=== PATIENT | female | born 1960 | race Caucasian/White ===

== ENCOUNTER 2021-06-17 10:24 | Inpatient (IN) | payer MEDICARE, SELFPAY ==
[2021-06-17] VITALS (17 sets, daily range): BP systolic 105–121; BP diastolic 53–71; PULSE 80–101; RESP 16–24; TEMP 36.2–36.9; O2SAT 76–98; BMI 26.7; BMI 26.8
--- NOTE | 2021-06-17 10:29 | RAD_ITS ---
STUDY: X-RAY CHEST REASON FOR EXAM: Female, 60 years old. Dyspnea TECHNIQUE: Single AP portable upright view of the chest. The patient shoulders are rotated to the left. COMPARISON: None. FINDINGS: The lungs are incompletely expanded, and some crowding may lend to the appearance of prominent reticular interstitial densities in both lungs. There is some peribronchial thickening or fibronodular densities in the lateral right midlung and right base. This is also suggested in the medial left apex and in the lateral left base, the latter with question of early ill-defined alveolar density reflecting volume loss or infection. There is no demonstrated pleural abnormality. Normal size heart. Normal mediastinum and michael. Normal visualized pulmonary arteries. Normal visualized aortic arch and descending thoracic aorta. Normal visualized thoracic spine. Normal visualized ribs, clavicles, and shoulders. There is no demonstrated abnormality of the visualized soft tissue structures of the upper abdomen. RAD/Chest 1 View (Portable) IMPRESSION: X-ray examination of the chest degraded by suboptimal inspiratory effort with crowding. There is some prominence of the interstitium with scattered subsegmental sites of peripheral peribronchial thickening or fibronodular change, which may reflect chronic postinflammatory change. Question of early subsegmental volume loss or infection in the lateral left base. Electronically Signed: William Mancilla MD at 11:09 EDT , Service support ,
--- NOTE | 2021-06-17 10:30 | EKG12_ITS ---
Test Reason : SOB Blood Pressure : / mmHG Vent. Rate : 092 BPM Atrial Rate : 092 BPM P-R Int : 136 ms QRS Dur : 086 ms QT Int : 390 ms P-R-T Axes : 057 000 026 degrees QTc Int : 482 ms Normal sinus rhythm Nonspecific ST abnormality Abnormal ECG Confirmed by PURNIMA BROTHERS, DARCI ([id number]), editor dictionary SIMON JAIMES ([id number]) on 06/18/2021 1:39:31 PM Referred By: WANDA Confirmed By:DARCI FELTON MD
--- NOTE | 2021-06-17 10:31 | ED.VIS.DYS ---
HPI History of Present Illness Chief Complaint: Shortness of Breath Detail of Chief Complaint: Shortness of breath that started about a week ago. Informant: patient Narrative Narrative: Patient presents with shortness of breath x1 week. Patient states it came on gradually. She has had a mild cough. She traveled to [place] in April by vehicle. Patient denies any chest pain. She does have remote history of DVT but not currently anticoagulated. Patient is a smoker but has never been diagnosed with COPD or emphysema. No history of CHF. Patient describes minimal cough that is nonproductive. She denies Covid exposures. Patient has not been immunized against Covid. PFSH PFSH Home Medications Cetirizine Hcl [Zyrtec] 10 mg PO PRN PRN 10/08/13 [History Last Taken Unknown] Allergy/AdvReac Type Severity Reaction Status Date / Time Iodinated Contrast Media Allergy Rash Verified 06/17/21 12:18 [CONTRASTS] Surgical History (Updated 06/17/21 @ 10:31 by Dana Maria RN) Hx of appendectomy Hx of appendectomy Hx of cholecystectomy Hx of hysterectomy Social History Smoking Status: Current every day smoker tobacco type: cigarettes ROS ROS ED Constitutional Constitutional ED: Reports systems reviewed and no addt'l complaints, except as documented; Denies body ache(s), change in weight or chills Eyes Eyes: Denies acute decrease in peripheral vision, change in vision, double vision or loss of vision ENT ENT ED: Reports none; Denies ear pain, lip swelling, loss taste/smell, neck pain, otalgia or sore throat Cardiovascular Cardiovascular: Reports none; Denies abdominal pain, chest pain with activity, leg edema, lightheadedness, palpitations, rapid heart rate or syncope Respiratory/Chest Respiratory/Chest: Reports none, cough, dyspnea and dyspnea on exertion; Denies change in mental status, dry cough, hemoptysis, shortness of breath at rest, shortness of breath with exertion or sputum Gastrointestinal Gastrointestinal: Reports none; Denies abdominal pain, change in stool character, diarrhea, hematemesis, hematochezia, melena, rectal bleeding or vomiting Genitourinary Genitourinary ED: Reports none; Denies abdominal discomfort, anuria, dysuria, genital pain or polyuria Musculoskeletal Musculoskeletal: Reports none; Denies arthralgias, back pain, difficulty walking, extremity pain, muscle weakness or myalgias Integumentary Reports none; Denies abscess or rash Neurologic Neurologic: Reports none; Denies abnormal gait, confusion, focal weakness, frequent falls, headache(s), loss of vision, numbness, paresthesias, radicular pain, vertigo or weakness Psychiatric Psychiatric: Reports systems reviewed and no addt'l complaints, except as documented and none; Denies behavioral changes, confusion, difficulty concentrating, hallucinations, suicidal ideation, tactile hallucinations or visual hallucinations Endocrine Endocrinology: Denies none, cold intolerance, excessive sweating, fatigue or heat intolerance Hematologic/Lymphatic Hematologic/Lymphatic: Reports none; Denies anemia, easy bleeding or easy bruising Allergic/Immunologic Allergic/Immunologic ED: Denies as per HPI, none, lip swelling, mouth swelling, throat swelling, tongue swelling or hives EXAM Physical Exam Const Vital Signs: 06/17/21 10:25 06/17/21 10:28 06/17/21 10:32 Temperature 97.9 F 97.9 F Temperature Source Temporal Temporal Pulse Rate 101 H 97 Respiratory Rate 18 20 H Respiratory Effort Normal Respiratory Depth Normal Respiratory Pattern Normal Blood Pressure 121/64 H 121/64 H Blood Pressure Mean 83 83 Pulse Ox 91 93 Oxygen Delivery Method Nasal Cannula Nasal Cannula Room Air Oxygen Flow Rate (L/min) 6 6 06/17/21 10:45 06/17/21 11:29 06/17/21 12:04 Temperature 97.7 F L 97.1 F L Temperature Source Temporal Temporal Pulse Rate 85 99 89 Respiratory Rate 22 H 18 18 Respiratory Effort Respiratory Depth Respiratory Pattern Tachypnea Blood Pressure 117/67 105/63 Blood Pressure Mean 83 77 Pulse Ox 94 95 Oxygen Delivery Method Nasal Cannula Nasal Cannula Oxygen Flow Rate (L/min) 6 6 06/17/21 13:03 06/17/21 14:15 Temperature 97.9 F 98.0 F Temperature Source Temporal Temporal Pulse Rate 82 82 Respiratory Rate 16 21 H Respiratory Effort Respiratory Depth Respiratory Pattern Blood Pressure 107/53 L 117/63 Blood Pressure Mean 71 81 Pulse Ox 98 94 Oxygen Delivery Method Room Air Nasal Cannula Oxygen Flow Rate (L/min) 6 Positive well nourished and well developed General Appearance ED: well developed and NAD HEENT Reports TM's clear and moist mucous membranes normocephalic and atraumatic; Negative for trauma or tenderness Tympanic Membrane ED: Yes TM's clear Eyes PERRL and EOMs intact bilaterally General Eye ED: Negative for pale conjunctiva or scleral icterus Neck no lymphadenopathy, supple and no JVD General: Negative for tenderness Chest Wall inspection of chest normal and palpation of chest normal Chest: Negative for tenderness Resp clear to auscultation bilaterally Resp Narrative: Good aeration bilaterally. Minimal expiratory wheezes noted. Mild tachypnea with slight conversational dyspnea. No accessory muscle use or retractions noted. Effort and Inspection: Negative for respiratory distress or pain with movement Auscultation: wheezes; Negative for rhonchi or diminished lung sounds Cardio regular rate, regular rhythm, S1 normal heart sound, S2 normal heart sound and no murmurs Peripheral Pulses: pulses 2+ throughout GI normal to inspection, nondistended, normoactive bowel sounds, soft to palpation, non-tender, non-distended and no masses Back/Spine no CVA tenderness and no thoracic nor lumbar tenderness Extremity normal to inspection General Extremety ED: Negative for edema General Extremity: Negative for edema Neuro oriented x3, CN's II-XII intact bilaterally, no sensory deficits noted and gait normal Sensorium / Orientation: awake, alert, oriented to person, oriented to place and oriented to time Motor Exam: strength 5/5 throughout and strength abnormal Psych mental status grossly normal Skin no rashes or lesions noted and no wounds MDM MDM MDM Narrative Medical decision making narrative: Case discussed with hospitalist to evaluate patient for admission. Hospitalist asked that I discussed case with ICU physician on-call Dr. Lowe. Patient will require admission for respiratory failure related to pulmonary emboli. I suspect although patient is negative for the rapid Covid test that her PCR will likely come back positive given that findings on CT would be consistent with Covid pneumonia. Lab Data Attestation: I reviewed the patient's lab results. Labs: Laboratory Results - last 24 hr 06/17/21 06/17/21 06/17/21 10:30 10:30 10:30 WBC 10.0 RBC 4.87 Hgb 14.8 Hct 44.5 MCV 91.4 MCH 30.4 MCHC 33.3 RDW Std Deviation 44.7 H RDW Coeff of Gary 13.5 Plt Count 315 MPV 10.0 Immature Gran % (Auto) 4.300 H Neut % (Auto) 71.3 H Lymph % (Auto) 18.1 L [place] % (Auto) 5.0 Eos % (Auto) 0.8 Baso % (Auto) 0.5 Absolute Neuts (auto) 7.1 Absolute Lymphs (auto) 1.81 Nucleated RBC % 0.6 Differential Comment SCANNED Reactive Lymphocytes 1+ D-Dimer Quant (PE/DVT) > 20.00 H* Sodium 140 Potassium 2.8 L Chloride 105 Carbon Dioxide 23.0 Anion Gap 12 BUN 27 H Creatinine 1.15 H Estim Creat Clear Calc 47.48 Est GFR (MDRD) Af Amer 61 Est GFR (MDRD) Non-Af 51 L BUN/Creatinine Ratio 23.5 H Glucose 151 H Lactic Acid Calcium 9.4 Troponin I High Sens 19 B-Natriuretic Peptide 06/17/21 06/17/21 10:30 10:30 WBC RBC Hgb Hct MCV MCH MCHC RDW Std Deviation RDW Coeff of Gary Plt Count MPV Immature Gran % (Auto) Neut % (Auto) Lymph % (Auto) [place] % (Auto) Eos % (Auto) Baso % (Auto) Absolute Neuts (auto) Absolute Lymphs (auto) Nucleated RBC % Differential Comment Reactive Lymphocytes D-Dimer Quant (PE/DVT) Sodium Potassium Chloride Carbon Dioxide Anion Gap BUN Creatinine Estim Creat Clear Calc Est GFR (MDRD) Af Amer Est GFR (MDRD) Non-Af BUN/Creatinine Ratio Glucose Lactic Acid 3.9 H* Calcium Troponin I High Sens B-Natriuretic Peptide 32.1 Radiography Diagnostic Testing: Radiology Impression Chest X-Ray 06/17/21 10:29 IMPRESSION: X-ray examination of the chest degraded by suboptimal inspiratory effort with crowding. There is some prominence of the interstitium with scattered subsegmental sites of peripheral peribronchial thickening or fibronodular change, which may reflect chronic postinflammatory change. Question of early subsegmental volume loss or infection in the lateral left base. Electronically Signed: William Mancilla MD at 11:09 EDT , Service support , Chest CTA 06/17/21 11:43 IMPRESSION: 1. Moderate clot burden of acute pulmonary embolism, occlusive index 40-45%. 2. Acute right heart strain. 3. Acute, presumedly Covid pneumonia. 4. Severe emphysema. Electronically Signed: Deann Tejada MD at 14:37 EDT Tel , Service support , EKG Initial EKG: Attestation: I personally reviewed and interpreted this EKG as follows: Comments: Sinus rhythm with a ventricular rate of [address] changes. Prior EKG tracings: available for review Discharge Plan Triage Chief Complaint: Shortness of Breath ED Provider: Ifeoma Rich Dx/Rx/DC Orders Clinical Impression: Pulmonary emboli, Respiratory failure, Hypoxemia Prescriptions: No Action Cetirizine Hcl [Zyrtec] 10 MG tablet 10 mg PO PRN PRN (Reason: Allergies) RF: 0 Primary Care Provider: Abhishek Smart Referrals: Abhishek Smart MD [Primary Care Provider] - Disposition Disposition: Acute Care [facility]
[2021-06-17] MEDS: 0.9% Normal Saline 1,000 ML 150 ML IV (10:39)
[2021-06-17 10:46] LABS: Absolute Lymphocyte Count 1.81 X10^3/uL (0.83-4.51); Absolute Neutrophil Count 7.1 X10^3/uL (2.0-7.7); Basophil# 0.05 X10^3/uL; Basophil% 0.5 % (0-1); Eosinophil# 0.08 X10^3/uL; Eosinophils% 0.8 % (0-5); Hematocrit 44.5 % (37-47); Hemoglobin 14.8 g/dL (12.0-15.0); Lymphocyte # 1.81 X10^3/ul (0.83-4.51); Lymphocyte % 18.1 % (19-41); Mean Corp Hgb Conc 33.3 g/dL (32-36); Mean Corpuscular Hgb 30.4 pg (27.0-32.0); Mean Corpuscular Volume 91.4 fL (81-99); NRBC Flagged by Analyzer 0.6 % (0-5); Neutrophil # 7.14 X10^3/uL (2.7-7.7); Neutrophil % 71.3 % (47-70); POSITIVE MORPHOLOGY YES; Platelet Count 315 K/mm3 (150-450); RBC Distribution Width CV 13.5 % (11.6-14.6); RBC Distribution Width SD 44.7 fl (35.1-43.9); Red Blood Count 4.87 M/mm3 (4.2-5.4)
[2021-06-17 10:47] LABS: Differential Indicated SCAN CRITERIA MET
[2021-06-17 11:06] LABS: Anion Gap 12 (5-15); BUN 27 mg/dL (7-18); BUN/Creat Ratio 23.5 RATIO (10-20); Calcium,Total 9.4 mg/dL (8.5-10.1); Chloride 105 mmol/L (98-107); Creatinine, Serum 1.15 mg/dL (0.55-1.02); EST Glomerular Filtration Rate 51 mL/min (>60); Est Glom Filt Rate - Afr Amer 61 mL/min (>60); Estimated Creatinine Clearance 47.48 ml/min; Glucose 151 mg/dL (74-106); Potassium 2.8 mmol/L (3.5-5.1); Sodium Level 140 mmol/L (136-145); Troponin-I HS 19 pg/mL (3.0-54.0)
[2021-06-17 11:15] LABS: BNP,B-Type NATRIURETIC PEPTIDE 32.1 pg/mL (0-100)
[2021-06-17 11:19] LABS: Lactic Acid 3.9 mmol/L (0.4-1.9)
[2021-06-17 11:23] LABS: Differential Comment SCANNED; Reactive Lymphocyte 1+
[2021-06-17] MEDS: Potassium Chloride Oral Tablet 20 MEQ 40 MEQ PO (11:28)
[2021-06-17 11:43] LABS: D-Dimer Quantitative (DVT/PE) > 20.00 FEU/ug/m (0.27-0.49)
--- NOTE | 2021-06-17 11:43 | CT_ITS ---
ACR Level 3 findings have been noted. An addendum which confirms receipt of the report will follow. STUDY: CTA CHEST REASON FOR EXAM: Female, 60 years old. Dyspnea RADIATION DOSAGE (If Supplied By Facility): CTDIvol = ( 11.04 ) mGy, DLP = ( 409.2 ) mGycm TECHNIQUE: The examination was performed with the intravenous administration of IV 100mL Isovue-370. Post-processing of the angiographic images was performed, with multiplanar reformation and 3D reconstruction. Individualized dose optimization techniques were used for this CT. COMPARISON: None. FINDINGS: There is extensive multifocal pulmonary embolism with moderate burden of clot both with occlusive and nonocclusive components. Occlusive index is estimated at 40-45%, moderate. There is mild right ventricular dilation and flattening of the intraventricular septum. There is extensive pneumonia and severe emphysema. There is no pulmonary edema or pleural effusions. Aorta is normal. CT/CTA Chest W/WO Contrast IMPRESSION: 1. Moderate clot burden of acute pulmonary embolism, occlusive index 40-45%. 2. Acute right heart strain. 3. Acute, presumedly Covid pneumonia. 4. Severe emphysema. Electronically Signed: Deann Tejada MD at 14:37 EDT Tel , Service support ,
--- NOTE | 2021-06-17 11:46 | ED.RN ---
d-dimer greater then 20. dr berg
[2021-06-17] MEDS: DiphenhydrAMINE 50 MG/ML Syringe IV (12:19)
[2021-06-17] MEDS: MethylPREDNISolone 125 MG/2 ML Vial IV (12:19)
[2021-06-17 14:41] LABS: Reflex Lactate? Y
[2021-06-17 15:35] LABS: Probe Check PASS; Specimen Processing Control PASS
--- NOTE | 2021-06-17 15:36 | PCM.HP.STD ---
HPI - General HPI Narrative AUGUSTUS GAN, is a 60 F with history of recurrent DVT, previous 2 times came to ER with shortness of breath and 76% on room air. Patient has shortness of breath for about 10 days, progressively worsening. She has mild chronic cough but thinks her baseline, smoker's cough. Denies any recent long travel or provoked cause. Last time when she has DVT she took anticoagulant for 1 and half years. She denies chest pain or pressure. Her blood pressure was slightly low when she came up but got better with IV fluid. CT angiogram was done and individually reviewed which shows moderate clot burden of acute PE, acute right ventricular dilatation with flattening of IV septum. Diffuse emphysematous changes both bullae and groundglass opacity in peripheral and basal areas. ER physician discussed with the collections associate and he advised against putting on BiPAP as she is high risk of pneumothorax with emphysematous lung and bullae. Twelve-lead EKG shows normal sinus rhythm [address]-T changes. QTc 422 ms. proBNP and troponin is negative. Patient does started on therapeutic Lovenox in the ED and IV fluid. Rapid Covid antigen is negative and RT-PCR is positive PFSH Home Medications Cetirizine Hcl [Zyrtec] 10 mg PO PRN PRN 10/08/13 [History Last Taken Unknown] Allergy/AdvReac Type Severity Reaction Status Date / Time Iodinated Contrast Media Allergy Rash Verified 06/17/21 12:18 [CONTRASTS] Surgical History (Updated 06/17/21 @ 10:31 by Dana Maria RN) Hx of appendectomy Hx of appendectomy Hx of cholecystectomy Hx of hysterectomy Social History Smoking Status: Current every day smoker tobacco type: cigarettes ROS ROS Narrative Constitutional: Reports fatigue and weakness. No fever HEENT: Reports systems reviewed and no addt'l complaints, except as documented Respiratory/Chest: Mild chronic cough. Dyspnea at rest. Chronic smoker 1-1.5 pack since teenage, quit 3 weeks ago Gastrointestinal: Denies coffee ground emesis, hematemesis or vomiting Genitourinary: Denies burning urination or new urinary tract symptoms Musculoskeletal: Denies joint pain and limited range of motion or leg swelling Neurologic: Denies seizure-like activity skin: No ulcer. No rash Endocrinology: Reports systems reviewed and no addt'l complaints, except as documented Hematologic/Lymphatic: Reports systems reviewed and no addt'l complaints, except as documented Rest 12 ROS are negative except as mentioned in HPI Vital Signs Vital Signs Vital Signs: 06/17/21 10:25 06/17/21 10:28 06/17/21 10:32 Temperature 97.9 F 97.9 F Temperature Source Temporal Temporal Pulse Rate 101 H 97 Respiratory Rate 18 20 H Respiratory Effort Normal Respiratory Depth Normal Respiratory Pattern Normal Blood Pressure 121/64 H 121/64 H Blood Pressure Mean 83 83 Pulse Ox 91 93 Oxygen Delivery Method Nasal Cannula Nasal Cannula Room Air Oxygen Flow Rate (L/min) 6 6 06/17/21 10:45 06/17/21 11:29 06/17/21 12:04 Temperature 97.7 F L 97.1 F L Temperature Source Temporal Temporal Pulse Rate 85 99 89 Respiratory Rate 22 H 18 18 Respiratory Effort Respiratory Depth Respiratory Pattern Tachypnea Blood Pressure 117/67 105/63 Blood Pressure Mean 83 77 Pulse Ox 94 95 Oxygen Delivery Method Nasal Cannula Nasal Cannula Oxygen Flow Rate (L/min) 6 6 06/17/21 13:03 06/17/21 14:15 Temperature 97.9 F 98.0 F Temperature Source Temporal Temporal Pulse Rate 82 82 Respiratory Rate 16 21 H Respiratory Effort Respiratory Depth Respiratory Pattern Blood Pressure 107/53 L 117/63 Blood Pressure Mean 71 81 Pulse Ox 98 94 Oxygen Delivery Method Room Air Nasal Cannula Oxygen Flow Rate (L/min) 6 Weight Weight: 165 lb 12.602 oz Body Mass Index (BMI) 26.7 Physical Exam Narrative General: Alert, Oriented x3, Cooperative HEENT: Atraumatic, PERRLA, EOMI, Normocephalic Oral: No Gingival or Mucosal Lesions/ Ulcerations Neck: Supple, No JVD, Negative Carotid Bruits Lungs: Air entry severely diminished in bilateral lungs. No crepitation or rhonchi. Dyspnea at rest. Cardiovascular: Regular rate, Regular Rhythm, Normal S1, Normal S2, No murmurs Abdomen: Bowel Sounds Present, Soft, Non Tender, Non-Distended : No renal angle tenderness. No suprapubic tenderness. Extremities: No edema, Capillary Refill Less than 3 Seconds Skin: No rashes, No breakdown Musculoskeletal: No Tenderness to Palpation of Joints or Extremities Neurological: Cranial nerves II-XII grossly intact, DTR 2+/4 and Symmetrical, Neuro grossly intact Psych/Mental Status: Normal Affect, Appropriate. Results Lab / Micro Data Result Diagrams: 06/17/21 10:30 06/17/21 10:30 Labs: Laboratory Results - last 24 hr 06/17/21 10:30: WBC 10.0, RBC 4.87, Hgb 14.8, Hct 44.5, MCV 91.4, MCH 30.4, MCHC 33.3, RDW Std Deviation 44.7 H, RDW Coeff of Gary 13.5, Plt Count 315, MPV 10.0, Immature Gran % (Auto) 4.300 H, Neut % (Auto) 71.3 H, Lymph % (Auto) 18.1 L, [place] % (Auto) 5.0, Eos % (Auto) 0.8, Baso % (Auto) 0.5, Absolute Neuts (auto) 7.1, Absolute Lymphs (auto) 1.81, Nucleated RBC % 0.6, Differential Comment SCANNED, Reactive Lymphocytes 1+ 06/17/21 10:30: D-Dimer Quant (PE/DVT) > 20.00 H* 06/17/21 10:30: Sodium 140, Potassium 2.8 L, Chloride 105, Carbon Dioxide 23.0, Anion Gap 12, BUN 27 H, Creatinine 1.15 H, Estim Creat Clear Calc 47.48, Est GFR (MDRD) Af Amer 61, Est GFR (MDRD) Non-Af 51 L, BUN/Creatinine Ratio 23.5 H, Glucose 151 H, Calcium 9.4, Troponin I High Sens 19 06/17/21 10:30: B-Natriuretic Peptide 32.1 06/17/21 10:30: Lactic Acid 3.9 H* 06/17/21 14:27: COVID-19 (HERMAN) Positive Micro: Microbiology 06/17/21 10:35 Nasal Secretion SARS-CoV-2 Antigen (Rapid) - Final Radiology Impression Chest X-Ray 06/17/21 10:29 IMPRESSION: X-ray examination of the chest degraded by suboptimal inspiratory effort with crowding. There is some prominence of the interstitium with scattered subsegmental sites of peripheral peribronchial thickening or fibronodular change, which may reflect chronic postinflammatory change. Question of early subsegmental volume loss or infection in the lateral left base. Electronically Signed: William Mancilla MD at 11:09 EDT , Service support , Chest CTA 06/17/21 11:43 IMPRESSION: 1. Moderate clot burden of acute pulmonary embolism, occlusive index 40-45%. 2. Acute right heart strain. 3. Acute, presumedly Covid pneumonia. 4. Severe emphysema. Electronically Signed: Deann Tejada MD at 14:37 EDT Tel , Service support , Assessment & Plan Assessment/Plan (1) Pulmonary emboli: QUALIFIERS: Pulmonary embolism type: multiple subsegmental (without acute cor pulmonale) Qualified Code(s): I26.94 - Multiple subsegmental pulmonary emboli without acute cor pulmonale PLAN: This 60-year-old female admitted for acute pulmonary embolism and COVID-19 pneumonia 1. Acute toxic respiratory failure secondary to moderate bilateral acute pulmonary embolism, bilateral COVID-19 pneumonia: Patient is being admitted on PCU. COVID-19 enhanced droplet precaution. Started on Lovenox one 1 mg/kg body weight every 12. 2D echo tomorrow a.m. Although CT angiogram shows RV dilatation, troponin high-sensitivity and BNP are negative. Patient discussed with the collections associate and agrees with PCU admission. Sole Blacker consulted. 2. Bilateral COVID-19 pneumonia: Patient has lactic acidosis. No fever, tachycardia but hypoxia. IV fluid Ringer lactate 1 L bolus and then 100 mill per hour. Start on Decadron 6 mg daily and remdesivir. consult ID. As patient has severe emphysematous lung, pneumonia and RV dilatation and high risk for fluid overload/pulmonary edema Rest as mentioned above. 3. Severe emphysema as per CT scan: Patient did not had prior PFT evaluation. DuoNeb every 4 hourly. Incentive spirometry, Pep and Mucinex D. Bronchopulmonary hygiene. 4. VTE prophylaxis: Already on therapeutic Lovenox. Discontinue if platelet count drops less than 50,000 or hemoglobin less than 8 g% Living will/advanced directive/end of life care: Patient does has living will or advanced directive. The mother is next to kin. After discussion of benefits/risks procedures involved with full code, DNR CC arrest and DNR CC, the patient opted for full code. Patient does want artificial life support including intubation, tube feed, ventilator and/chest compression, central venous catheter, vasopressor and DC shock if needed Total time spent in [id number] encounter in discussion of advanced directive 16 minutes. Clinical Impression(s) from Imaging Studies Chest X-Ray 06/17/21 10:29 IMPRESSION: X-ray examination of the chest degraded by suboptimal inspiratory effort with crowding. There is some prominence of the interstitium with scattered subsegmental sites of peripheral peribronchial thickening or fibronodular change, which may reflect chronic postinflammatory change. Question of early subsegmental volume loss or infection in the lateral left base. Chest CTA 06/17/21 11:43 IMPRESSION: 1. Moderate clot burden of acute pulmonary embolism, occlusive index 40-45%. 2. Acute right heart strain. 3. Acute, presumedly Covid pneumonia. 4. Severe emphysema. Charges/Coding Visit Charges Inpatient E&M: 79541 Init Hosp L3 Procedures Hospitalists Procedures: [id number] Advncd Care Plan 30 Min
[2021-06-17 15:53] LABS: Lactic Acid 1.4 mmol/L (0.4-1.9)
[2021-06-17] MEDS: Enoxaparin 80 MG/0.8 ML Syringe SC ×2 (16:09→21:28)
[2021-06-17 17:43] LABS: Fibrinogen 364 mg/dl (203-444)
[2021-06-17 17:52] LABS: International Normalized Ratio 1.4; Prothrombin Time (Protime)PT. 16.5 SECONDS (11.7-14.9)
--- NOTE | 2021-06-17 17:52 | PCS.PANDOC ---
PANDEMIC DOCUMENTATION INITIATED: Date: 05/21/2021 Time: 190
[2021-06-17] MEDS: Lactated Ringers 1,000 ML 999 ML IV (18:30)
[2021-06-17] MEDS: 0.9% Saline Lock 10 ML Syringe IV (18:46)
[2021-06-17 19:13] LABS: CPK Total, Creatine Kinase 49 U/L (26-192); LDH 653 U/L (84-246); Magnesium 1.8 mg/dL (1.6-2.6)
[2021-06-17] MEDS: Ipratropium/Albuterol Sulfate 3 ML AMPUL.NEB INHALATION ×2 (19:47→22:49)
[2021-06-17] MEDS: guaiFENesin/D-Methorphan TAB.SR.12H 1 TABLET PO (19:54)
[2021-06-17] MEDS: Lactated Ringers 1,000 ML 100 ML IV (19:54)
--- NOTE | 2021-06-17 23:00 | CPS ---
pt placed on high flow nasal canula
[2021-06-18] VITALS (14 sets, daily range): BP systolic 111–127; BP diastolic 56–60; PULSE 69–90; RESP 16–24; TEMP 36.6–36.9; O2SAT 92–97
[2021-06-18] MEDS: Calcium Carbonate 500 MG Tablet 1000 MG PO ×2 (04:23→18:27)
--- NOTE | 2021-06-18 05:55 | ECHOD_ITS ---
Procedure This was a 2D Doppler, Color Flow transthoracic echocardiogram. The study was technically limited. Exam performed portable in patient room. The exam was abbreviated due to the COVID 19 protocol. Left Ventricle Normal LV size. Left ventricular systolic function is normal. The estimated ejection fraction is 60 %. No regional wall motion abnormalities noted. Right Ventricle Normal RV size. Normal systolic function. Atria Normal left atrium. Normal right atrium. Mitral Valve Normal mitral valve. Tricuspid Valve Normal tricuspid valve. Mild (1+) tricuspid valve insufficiency. Pulmonary artery systolic pressure is 34 mmHg. Great Vessels Normal aortic root. Pericardium/Pleural No pericardial effusion. MMode/2D Measurements & Calculations LVIDd: 4.1 cm IVSd: 0.70 cm LAV(MOD-bp): 57.4 ml LVIDs: 2.8 cm LVPWd: 0.78 cm LAV(MOD-bp) Indexed: 31.1 ml/m2 RVDd: 4.0 cm FS: 31.0 % LAV(MOD-sp2): 65.8 ml LAV(MOD-sp4): 46.3 ml LA A4 area: 18.5 cm2 RA A4 area: 15.8 cm2 Doppler Measurements & Calculations TR max jun: 278.8 cm/sec TR max P.2 mmHg ECHO/Echo Complete Interpretation Summary Normal LV size. Left ventricular systolic function is normal. The estimated ejection fraction is 60 %. Mild (1+) tricuspid valve insufficiency. Pulmonary artery systolic pressure is 34 mmHg. Ordering Physician: Willem Olivarez Referring Physician: RV FAILURE Performed By: Zahida Lehman, RDCS, RVT
[2021-06-18] MEDS: Ipratropium/Albuterol Sulfate 3 ML AMPUL.NEB INHALATION ×5 (07:21→23:06)
[2021-06-18 08:01] LABS: Absolute Lymphocyte Count 1.61 X10^3/uL (0.83-4.51); Absolute Neutrophil Count 10.6 X10^3/uL (2.0-7.7); Basophil# 0.02 X10^3/uL; Basophil% 0.1 % (0-1); Hematocrit 38.6 % (37-47); Hemoglobin 12.8 g/dL (12.0-15.0); Lymphocyte # 1.61 X10^3/ul (0.83-4.51); Lymphocyte % 11.9 % (19-41); Mean Corp Hgb Conc 33.2 g/dL (32-36); Mean Corpuscular Hgb 30.4 pg (27.0-32.0); Mean Corpuscular Volume 91.7 fL (81-99); Mean Platelet Vol. 10.2 fl (6.2-12.0); Monocyte# 0.65 X10^3/uL; Monocyte% 4.8 % (0-10); NRBC Flagged by Analyzer 0.1 % (0-5); Neutrophil # 10.63 X10^3/uL (2.7-7.7); Neutrophil % 78.8 % (47-70); Platelet Count 277 K/mm3 (150-450); RBC Distribution Width CV 13.4 % (11.6-14.6); RBC Distribution Width SD 44.7 fl (35.1-43.9); Red Blood Count 4.21 M/mm3 (4.2-5.4); White Blood Count 13.5 K/mm3 (4.4-11.0)
[2021-06-18 08:46] LABS: ALB/GLOB Ratio 0.6 RATIO (0.9-2.4); AST(SGOT) 43 U/L (15-37); Alanine Aminotransfer ALT/SGPT 90 U/L (13-56); Albumin, Serum 2.3 g/dL (3.2-5.0); Alkaline Phosphatase 178 U/L (45-117); Anion Gap 10 (5-15); BUN 22 mg/dL (7-18); BUN/Creat Ratio 35.7 RATIO (10-20); Calcium,Total 8.8 mg/dL (8.5-10.1); Chloride 105 mmol/L (98-107); Creatinine, Serum 0.62 mg/dL (0.55-1.02); EST Glomerular Filtration Rate 104 mL/min (>60); Est Glom Filt Rate - Afr Amer 126 mL/min (>60); Estimated Creatinine Clearance 88.07 ml/min; Glucose 137 mg/dL (74-106); Potassium 3.1 mmol/L (3.5-5.1); Protein, Total 6.3 g/dL (6.4-8.2); Sodium Level 139 mmol/L (136-145); Thyroid Stim Hormone (TSH) 0.41 uIU/mL (0.358-3.74)
[2021-06-18] MEDS: Enoxaparin 80 MG/0.8 ML Syringe SC ×2 (11:11→22:05)
[2021-06-18] MEDS: guaiFENesin/D-Methorphan TAB.SR.12H 1 TABLET PO ×2 (11:11→22:06)
--- NOTE | 2021-06-18 12:40 | CASEMGMT ---
MARCI AGUILERA Face to Face with patient for initial transition planning/care coordination assessment. RN CM introduced self and role at [facility]. Patient lying in bed, alert and oriented. Patient willing to participate in assessment and is able to answer all questions appropriately. Care providers, pharmacy, and demographics verified. Patient wishes to discharge home, denies need for home health at this time. Patient states she has no further needs or concerns at this time. CM to follow for discharge planning needs that may arise. PCP: [facility] Specialists: none Preferred Pharmacy: [facility] retail at discharge. Insurance: none Prescription Benefit: none Living Will/HPOA: none LNOK: sons Living Arrangements: Patient lives in [place] and here in [place] visiting sons. Patient states she is staying with son in his 2nd floor apartment. Patient states she could isolate at other son's first floor apartment. Transportation: son DME/HHC: Patient states she is getting a nebulizer from son that he has extra. No preferences for DME and agreeable to [employer]. Will monitor for need for home oxgyen. Disposition Plan: Patient to discharge home with family support and follow-up plans in place. Sosa RONQUILLO, RN, CM
--- NOTE | 2021-06-18 14:09 | CON.PCM.CC_ITS ---
Assessment & Plan Assessment/Plan (1) Respiratory failure: (2) Pulmonary emboli: QUALIFIERS: Pulmonary embolism type: multiple subsegmental (without acute cor pulmonale) Qualified Code(s): I26.94 - Multiple subsegmental pulmonary emboli without acute cor pulmonale (3) Hypoxemia: PLAN: RECOMMENDATIONS: 1. Continue remdesivir and Decadron to complete recommended courses 2. Volume restrict as tolerated 3. Encourage out of bed and incentive spirometer as tolerated 4. Wean supplemental oxygen as tolerated 5. Add as needed to scheduled bronchodilator therapy 6. Full anticoagulation IMPRESSIONS: 1. Acute hypoxic respiratory failure secondary to COVID-19 pneumonia and bilateral PEs Patient appears to have significant RV dilation on CT scan. Echocardiogram has been ordered. Patient should be on full anticoagulation. Decadron will be added to Remdesivir therapy. Wean supplemental oxygen as tolerated. Patient would benefit from incentive spirometer and out of bed as tolerated. Patient does not formally carry a diagnosis of COPD, but does have significant emphysematous changes noted. Patient will have as needed albuterol added to DuoNeb therapy. Patient appears to have poor insight into her overall condition. Patient is not immunized, so clinical course could get worse moving forward. If patient does not significantly deteriorate, could transition to a [address] of subcu Lovenox. 2. Poor insight/advanced age/active tobacco abuse Complicates care, management, recovery and prognosis. Patient is a full code. Nicotine replacement was offered. Patient encouraged to quit smoking. Next of kin is reportedly her mother. HPI Consult Data Date of Consult: 06/18/21 HPI Narrative HPI Narrative: AUGUSTUS GAN is a 60 F, with no reported past medical history, who presents to [facility] on 06/17/2021 secondary to progressive shortness of breath over the previous week. Patient had reported a mild cough initially that progressed to shortness of breath. Patient stated that 3 days prior to presentation she had tried to go up some steps and had significant issues. Patient presented to the ER secondary to continued progression to the point that she was short of breath at rest. Patient did report that she recently traveled to [place] in April with a vehicle. Patient does have a remote history of DVT, but is not currently anticoagulated. Patient is a smoker, but is never been seen by a transportation mechanic to be diagnosed with COPD or emphysema. Patient is not aware of any congestive heart failure. On presentation to the ER, patient was afebrile, but tachycardic at 101 bpm. Patient was requiring 6 L nasal cannula to maintain saturations. Patient has never required supplemental oxygen previously. Laboratory work-up was relatively unremarkable except for an elevated D-dimer, low potassium at 2.8 and a creatinine of 1.15. Lactate was elevated at 3.9 and BNP was 32.1. Chest x- ray had shown some scattered peribronchial thickening. Given elevated D-dimer, CTA was obtained showing a moderate clot burden with acute right heart strain, severe emphysema and bilateral groundglass opacities. Initial Covid testing was negative, but subsequent testing had come back positive. The patient was ad mitted to the floor for further evaluation. Patient reports subjective improvement in overall condition since admission. Patient is requiring 8 L nasal cannula to maintain saturations. Patient is u nclear on the exact onset of symptomatology. Patient does report a history of smoking in the past, but is never been seen by transportation mechanic. Patient does have a cough productive of clear to white sputum at baseline. Patient does not use any inhalers. Patient has had some issues with environmental allergies in the past and has taken Zyrtec [id number]. Patient is very coy about her COVID-19. Patient states that is what they tell me I have. Patient is also aware that she has pulmonary emboli. Patient did not get vaccinated against COVID-19, but would not give any reasoning. Patient does not report using ivermectin or Plaquenil as prophylaxis. Patient has no history of liver dysfunction in the past. Review of systems otherwise negative from a constitutional, HEENT, respiratory, cardiovascular, GI, genitourinary, musculoskeletal, skin, neurologic, psychiatric and hematologic system unless stated above. PFSH Allergy/AdvReac Type Severity Reaction Status Date / Time Iodinated Contrast Media Allergy Rash Verified 06/17/21 12:18 [CONTRASTS] Surgical History (Updated 06/17/21 @ 10:31 by Dana Maria RN) Hx of appendectomy Hx of appendectomy Hx of cholecystectomy Hx of hysterectomy Social History Smoking Status: Current every day smoker tobacco type: cigarettes ROS ROS Narrative See HPI Physical Exam Const alert, oriented x3 and no apparent distress Constitutional Narrative: On nasal cannula General Appearance: cooperative and well developed HEENT normocephalic, head/scalp atraumatic and moist oral mucous membranes Eyes PERRL and EOMs intact bilaterally Neck full ROM and no lymphadenopathy Chest inspection of chest normal Resp normal respiratory effort and no use of accessory muscles Effort and Inspection: able to speak in complete sentences Auscultation: wheezes and diminished lung sounds; Negative for rales or rhonchi Percussion: Negative for dullness Cardio regular rate, regular rhythm, S1 normal heart sound, S2 normal heart sound, no murmurs, no rub and no gallops GI normal to inspection, nondistended, normoactive bowel sounds no CVA tenderness Extremity no clubbing, cyanosis or edema Skin no rashes or lesions noted Neuro oriented x3, CN's II-XII intact bilaterally, moves all extremities and no focal motor deficits Psych cooperative and affect normal Lab / Micro Data Result Diagrams: 06/18/21 06:35 06/18/21 06:35 Labs: Laboratory Results - last 24 hr 06/17/21 10:30: Magnesium 1.8, Lactate Dehydrogenase 653 H, C-React Prot Ext Range 90.00 H 06/17/21 10:30: PT 16.5 H, INR 1.4, Fibrinogen 364 06/17/21 10:30: Total Creatine Kinase 49 06/17/21 10:30: Procalcitonin 0.20 H 06/17/21 14:27: COVID-19 (HERMAN) Positive 06/17/21 15:05: Lactic Acid 1.4 06/18/21 06:35: WBC 13.5 H, RBC 4.21, Hgb 12.8, Hct 38.6, MCV 91.7, MCH 30.4, MCHC 33.2, RDW Std Deviation 44.7 H, RDW Coeff of [place] 13.4, Plt Count 277, MPV 10.2, Immature Gran % (Auto) 4.400 H, Neut % (Auto) 78.8 H, Lymph % (Auto) 11.9 L, [place] % (Auto) 4.8, Eos % (Auto) 0.0, Baso % (Auto) 0.1, Absolute Neuts (auto) 10.6 H, Absolute Lymphs (auto) 1.61, Nucleated RBC % 0.1 06/18/21 06:35: Sodium 139, Potassium 3.1 L, Chloride 105, Carbon Dioxide 24.0, Anion Gap 10, BUN 22 H, Creatinine 0.62, Estim Creat Clear Calc 88.07, Est GFR (MDRD) Af Amer 126, Est GFR (MDRD) Non-Af 104, BUN/Creatinine Ratio 35.7 H, Glucose 137 H, Calcium 8.8, Total Bilirubin 0.60, AST 43 H, ALT 90 H, Alkaline Phosphatase 178 H, Total Protein 6.3 L, Albumin 2.3 L, Globulin 4.0, Albumin/Globulin Ratio 0.6 L, TSH 0.41 Micro: Microbiology 06/17/21 10:35 Nasal Secretion SARS-CoV-2 Antigen (Rapid) - Final Radiology Impression Chest CTA 06/17/21 11:43 IMPRESSION: 1. Moderate clot burden of acute pulmonary embolism, occlusive index 40-45%. 2. Acute right heart strain. 3. Acute, presumedly Covid pneumonia. 4. Severe emphysema. Electronically Signed: Deann Tejada MD at 14:37 EDT Tel , Service support , ADDENDUM: 06/17/21 1540 IMPRESSION: 1. Moderate clot burden of acute pulmonary embolism, occlusive index 40-45%. 2. Acute right heart strain. 3. Acute, presumedly Covid pneumonia. 4. Severe emphysema. N.B. : Dr. Ifeoma Rich MD, confirmed on 06/17/2021 15:33:01 (ET) that the healthcare facility has received the radiology report. Electronically Signed: Deann Tejada MD at 14:37 EDT Tel , Service support , Charges/Coding Visit Charges Inpatient E&M: 01621 Init Hosp L3
--- NOTE | 2021-06-18 15:16 | PCM.CONS.GEN ---
Assessment & Plan Assessment/Plan (1) Respiratory failure: (2) Hypoxemia: (3) Pulmonary emboli: QUALIFIERS: Pulmonary embolism type: multiple subsegmental (without acute cor pulmonale) Qualified Code(s): I26.94 - Multiple subsegmental pulmonary emboli without acute cor pulmonale (4) COVID-19: PLAN: Sx started about 10 days ago. Unvaccinated. On dex, remdesivir, therapeutic anticoag. Recommended 20 days isolation, recommend sons get tested and vaccinated. She also needs vaccine in 1-2 months. Will follow, thank you HPI Consult Data Date of Consult: 06/18/21 HPI Narrative HPI Narrative: AUGUSTUS GAN, is a 60 F who presented 06/17 with about 9-10 days of fever, chills, cough, dyspnea. No change in taste/smell, no n/v/d. Visiting from [place]. Unvaccinated for covid. H/o DVT. Came to ED, covid (+), CT showed extensive PEs. Feeling better. Full ROS performed and neg except as noted above. PFSH Allergy/AdvReac Type Severity Reaction Status Date / Time Iodinated Contrast Media Allergy Rash Verified 06/17/21 12:18 [CONTRASTS] Surgical History (Updated 06/17/21 @ 10:31 by Dana Maria RN) Hx of appendectomy Hx of appendectomy Hx of cholecystectomy Hx of hysterectomy Social History Smoking Status: Current every day smoker tobacco type: cigarettes Physical Exam Const alert, oriented x3 and no apparent distress General Appearance: cooperative HEENT normocephalic and head/scalp atraumatic Eyes PERRL Neck supple and nodes Resp Auscultation: diminished lung sounds Cardio regular rate and regular rhythm GI normal to inspection, nondistended, normoactive bowel sounds Extremity no clubbing, cyanosis or edema Skin no rashes or lesions noted Neuro CN's II-XII intact bilaterally Lab / Micro Data Result Diagrams: 06/18/21 06:35 06/18/21 06:35 Labs: Laboratory Results - last 24 hr 06/17/21 10:30: Magnesium 1.8, Lactate Dehydrogenase 653 H, C-React Prot Ext Range 90.00 H 06/17/21 10:30: PT 16.5 H, INR 1.4, Fibrinogen 364 06/17/21 10:30: Total Creatine Kinase 49 06/17/21 10:30: Procalcitonin 0.20 H 06/17/21 14:27: COVID-19 (HERMAN) Positive 06/17/21 15:05: Lactic Acid 1.4 06/18/21 06:35: WBC 13.5 H, RBC 4.21, Hgb 12.8, Hct 38.6, MCV 91.7, MCH 30.4, MCHC 33.2, RDW Std Deviation 44.7 H, RDW Coeff of [place] 13.4, Plt Count 277, MPV 10.2, Immature Gran % (Auto) 4.400 H, Neut % (Auto) 78.8 H, Lymph % (Auto) 11.9 L, [place] % (Auto) 4.8, Eos % (Auto) 0.0, Baso % (Auto) 0.1, Absolute Neuts (auto) 10.6 H, Absolute Lymphs (auto) 1.61, Nucleated RBC % 0.1 06/18/21 06:35: Sodium 139, Potassium 3.1 L, Chloride 105, Carbon Dioxide 24.0, Anion Gap 10, BUN 22 H, Creatinine 0.62, Estim Creat Clear Calc 88.07, Est GFR (MDRD) Af Amer 126, Est GFR (MDRD) Non-Af 104, BUN/Creatinine Ratio 35.7 H, Glucose 137 H, Calcium 8.8, Total Bilirubin 0.60, AST 43 H, ALT 90 H, Alkaline Phosphatase 178 H, Total Protein 6.3 L, Albumin 2.3 L, Globulin 4.0, Albumin/Globulin Ratio 0.6 L, TSH 0.41 Radiology Impression Chest CTA 06/17/21 11:43 IMPRESSION: 1. Moderate clot burden of acute pulmonary embolism, occlusive index 40-45%. 2. Acute right heart strain. 3. Acute, presumedly Covid pneumonia. 4. Severe emphysema. Electronically Signed: Deann Tejada MD at 14:37 EDT Tel , Service support , ADDENDUM: 06/17/21 7739 IMPRESSION: 1. Moderate clot burden of acute pulmonary embolism, occlusive index 40-45%. 2. Acute right heart strain. 3. Acute, presumedly Covid pneumonia. 4. Severe emphysema. N.B. : Dr. Ifeoma Rich MD, confirmed on 06/17/2021 15:33:01 (ET) that the healthcare facility has received the radiology report. Electronically Signed: Deann Tejada MD at 14:37 EDT Tel , Service support ,
[2021-06-18] MEDS: dexAMETHasone 4 MG Tablet 6 MG PO (16:23)
--- NOTE | 2021-06-18 17:09 | PN.HOSP_ITS ---
Subjective Subjective Heart rate and blood pressure controlled. No fever. Mild hypokalemia. Objective Data Objective Data Vital Signs: Vital Signs Temp Pulse Resp BP Pulse Ox 98.5 F 80 16 111/57 L 92 06/18/21 16:13 06/18/21 16:13 06/18/21 16:13 06/18/21 16:13 06/18/21 16:13 Oxygen Flow Rate (L/min) 8 Oxygen Delivery Method Nasal Cannula Weight: 166 lb 0.129 oz Body Mass Index (BMI) 26.8 Intake & Output: Intake and Output for Last 24 Hours 06/16/21 06/17/21 06/18/21 23:59 23:59 23:59 Intake Total 2250 / 2610 1480 / 1480 Output Total 0 / 0 Balance 2250 / 2610 1480 / 1480 Lab / Micro Data Result Diagrams: 06/18/21 06:35 06/18/21 06:35 Labs: Laboratory Results - last 24 hr 06/17/21 10:30: Magnesium 1.8, Lactate Dehydrogenase 653 H, C-React Prot Ext Range 90.00 H 06/17/21 10:30: PT 16.5 H, INR 1.4, Fibrinogen 364 06/17/21 10:30: Total Creatine Kinase 49 06/17/21 10:30: Procalcitonin 0.20 H 06/18/21 06:35: WBC 13.5 H, RBC 4.21, Hgb 12.8, Hct 38.6, MCV 91.7, MCH 30.4, MCHC 33.2, RDW Std Deviation 44.7 H, RDW Coeff of [place] 13.4, Plt Count 277, MPV 10.2, Immature Gran % (Auto) 4.400 H, Neut % (Auto) 78.8 H, Lymph % (Auto) 11.9 L, [place] % (Auto) 4.8, Eos % (Auto) 0.0, Baso % (Auto) 0.1, Absolute Neuts (auto) 10.6 H, Absolute Lymphs (auto) 1.61, Nucleated RBC % 0.1 06/18/21 06:35: Sodium 139, Potassium 3.1 L, Chloride 105, Carbon Dioxide 24.0, Anion Gap 10, BUN 22 H, Creatinine 0.62, Estim Creat Clear Calc 88.07, Est GFR (MDRD) Af Amer 126, Est GFR (MDRD) Non-Af 104, BUN/Creatinine Ratio 35.7 H, Glucose 137 H, Calcium 8.8, Total Bilirubin 0.60, AST 43 H, ALT 90 H, Alkaline Phosphatase 178 H, Total Protein 6.3 L, Albumin 2.3 L, Globulin 4.0, Albumin/Globulin Ratio 0.6 L, TSH 0.41 Micro: Microbiology 06/17/21 10:35 Nasal Secretion SARS-CoV-2 Antigen (Rapid) - Final Radiography Diagnostic Testing: Radiology Impression Echocardiogram 06/18/21 05:55 Interpretation Summary Normal LV size. Left ventricular systolic function is normal. The estimated ejection fraction is 60 %. Mild (1+) tricuspid valve insufficiency. Pulmonary artery systolic pressure is 34 mmHg. Ordering Physician: Willem Olivarez Referring Physician: RV FAILURE Performed By: Zahida Lehman, DARY, RVT Physical Exam Narrative General: Alert, Oriented x3, Cooperative HEENT: Atraumatic, PERRLA, EOMI, Normocephalic Oral: No Gingival or Mucosal Lesions/ Ulcerations Neck: Supple, No JVD, Negative Carotid Bruits Lungs: Air entry severely diminished in bilateral lungs. Expiratory rhonchi present. No dyspnea at rest. Cardiovascular: Regular rate, Regular Rhythm, Normal S1, Normal S2, No murmurs Abdomen: Bowel Sounds Present, Soft, Non Tender, Non-Distended : No renal angle tenderness. No suprapubic tenderness. Extremities: No edema, Capillary Refill Less than 3 Seconds Skin: No rashes, No breakdown Musculoskeletal: No Tenderness to Palpation of Joints or Extremities Neurological: Cranial nerves II-XII grossly intact, DTR 2+/4 and Symmetrical, Neuro grossly intact Psych/Mental Status: Normal Affect, Appropriate. Assessment & Plan Assessment/Plan (1) Pulmonary emboli: QUALIFIERS: Pulmonary embolism type: multiple subsegmental (without acute cor pulmonale) Qualified Code(s): I26.94 - Multiple subsegmental pulmonary emboli without acute cor pulmonale PLAN: This 60-year-old female admitted for acute pulmonary embolism and COVID-19 pneumonia 1. Acute toxic respiratory failure secondary to moderate bilateral acute pulmonary embolism, bilateral COVID-19 pneumonia: Patient is being admitted on PCU. COVID-19 enhanced droplet precaution. Started on Lovenox one 1 mg/kg body weight every 12. Although CT angiogram shows RV dilatation, troponin high- sensitivity and BNP are negative. 06/18: Echo shows normal RV size and systolic function EF 60%. Mild TR, RVSP 34 mmHg. 2. Bilateral COVID-19 pneumonia: Patient has lactic acidosis. No fever, tac hycardia but hypoxia. Start on Decadron 6 mg daily and remdesivir. As patient has severe emphysematous lung, pneumonia and RV dilatation and high risk for fluid overload/pulmonary edema 06/18: Mild hypokalemia potassium replaced. Discontinue IV fluid. 3. Severe emphysema as per CT scan: Patient did not had prior PFT evaluation. DuoNeb every 4 hourly. Incentive spirometry, Pep and Mucinex D. Bronchopulmonary hygiene. No BiPAP as patient high chances of pneumothorax on BiPAP 4. VTE prophylaxis: Already on therapeutic Lovenox. Discontinue if platelet count drops less than 50,000 or hemoglobin less than 8 g% Living will/advanced directive/end of life care: Patient does has living will or advanced directive. The mother is next to kin. After discussion of benefits/risks procedures involved with full code, DNR CC arrest and DNR CC, the patient opted for full code. Patient does want artificial life support including intubation, tube feed, ventilator and/chest compression, central venous catheter, vasopressor and DC shock if needed Total time spent in [id number] encounter in discussion of advanced directive 16 minutes. Clinical Impression(s) from Imaging Studies Chest X-Ray 06/17/21 10:29 IMPRESSION: X-ray examination of the chest degraded by suboptimal inspiratory effort with crowding. There is some prominence of the interstitium with scattered subsegmental sites of peripheral peribronchial thickening or fibronodular change, which may reflect chronic postinflammatory change. Question of early subsegmental volume loss or infection in the lateral left base. Chest CTA 06/17/21 11:43 IMPRESSION: 1. Moderate clot burden of acute pulmonary embolism, occlusive index 40-45%. 2. Acute right heart strain. 3. Acute, presumedly Covid pneumonia. 4. Severe emphysema. Charges/Coding Visit Charges Inpatient E&M: 19347 Subs Hosp L2
[2021-06-18] MEDS: Potassium Chloride Oral Tablet 20 MEQ 40 MEQ PO ×2 (18:25→22:05)
[2021-06-19] VITALS (15 sets, daily range): BP systolic 124–127; BP diastolic 57–68; PULSE 64–88; RESP 14–20; TEMP 36–36.9; O2SAT 85–98
[2021-06-19 06:47] LABS: Absolute Lymphocyte Count 1.04 X10^3/uL (0.83-4.51); Absolute Neutrophil Count 10.4 X10^3/uL (2.0-7.7); Basophil# 0.02 X10^3/uL; Basophil% 0.2 % (0-1); Hematocrit 34.8 % (37-47); Hemoglobin 11.8 g/dL (12.0-15.0); Lymphocyte # 1.04 X10^3/ul (0.83-4.51); Lymphocyte % 8.2 % (19-41); Mean Corp Hgb Conc 33.9 g/dL (32-36); Mean Corpuscular Hgb 31.5 pg (27.0-32.0); Mean Corpuscular Volume 92.8 fL (81-99); Mean Platelet Vol. 9.7 fl (6.2-12.0); Monocyte# 0.83 X10^3/uL; Monocyte% 6.6 % (0-10); NRBC Flagged by Analyzer 0 % (0-5); Neutrophil # 10.39 X10^3/uL (2.7-7.7); Neutrophil % 82.4 % (47-70); Platelet Count 248 K/mm3 (150-450); RBC Distribution Width CV 14.1 % (11.6-14.6); RBC Distribution Width SD 46.7 fl (35.1-43.9); Red Blood Count 3.75 M/mm3 (4.2-5.4); White Blood Count 12.6 K/mm3 (4.4-11.0)
[2021-06-19] MEDS: Ipratropium/Albuterol Sulfate 3 ML AMPUL.NEB INHALATION ×4 (07:05→23:39)
[2021-06-19 07:15] LABS: ALB/GLOB Ratio 0.5 RATIO (0.9-2.4); AST(SGOT) 27 U/L (15-37); Alanine Aminotransfer ALT/SGPT 65 U/L (13-56); Alkaline Phosphatase 137 U/L (45-117); Anion Gap 6 (5-15); BUN 22 mg/dL (7-18); BUN/Creat Ratio 44.1 RATIO (10-20); Calcium,Total 8.4 mg/dL (8.5-10.1); Chloride 114 mmol/L (98-107); EST Glomerular Filtration Rate 133 mL/min (>60); Est Glom Filt Rate - Afr Amer 161 mL/min (>60); Estimated Creatinine Clearance 109.21 ml/min; Globulin 3.7 g/dL (2.2-4.2); Glucose 145 mg/dL (74-106); Magnesium 1.6 mg/dL (1.6-2.6); Potassium 4.4 mmol/L (3.5-5.1); Protein, Total 5.7 g/dL (6.4-8.2); Sodium Level 142 mmol/L (136-145)
[2021-06-19] MEDS: guaiFENesin/D-Methorphan TAB.SR.12H 1 TABLET PO ×2 (09:46→20:23)
[2021-06-19] MEDS: dexAMETHasone 4 MG Tablet 6 MG PO (09:46)
[2021-06-19] MEDS: Enoxaparin 80 MG/0.8 ML Syringe SC ×2 (09:46→20:23)
--- NOTE | 2021-06-19 11:04 | PCM.DC ---
Discharge Instructions Diet Discharge Diet: 2000 mg Sodium Diet Activity Discharge Activity: - (Self quarantine for 3 weeks from the date of onset of symptoms) Dressing / Incision Call your doctor if you observe: Fever of 101 or Higher, Coldness, Increased Pain, Numbness or Tingling, Change in Color, Inability to urinate, Inability to have a bowel movement, Using more than 1 pad per hour, Shortness of breath, Dizziness, Fainting spells, Swelling in the ankles, Chest pain, Prolonged hiccupping, Increased palpitations (irregular heartbeat), Calf discomfort and Uncontrolled pain Follow Up Care Test Results: Test results from this visit will be discussed in further detail at your follow-up appointment, if applicable. Discharge Plan Admission Admit Date/Time: 06/17/21 15:16 Primary Reason for Your Visit: Acute hypoxic respiratory failure secondary to PE COVID-19 pneumonia Attending Provider: Willem Olivarez Primary Care Provider: Abhishek Smart Consulting Providers: Shharam Lowe ; Han Amin ; Loan Viera APPLICATIONS ARCHITECT ; Tha Carrillo Discharge Orders/Prescriptions Prescriptions: New ipratropium-albuterol 0.5 mg-3 mg(2.5 mg base)/3 mL Solution For Nebulization 3 ml inhalation Q4H.RT PRN (Reason: SOB) Qty: 90 RF: 0 dexamethasone 4 mg Tablet 6 mg PO DAILY Qty: 11 RF: 0 pantoprazole [Protonix] 40 mg tablet,delayed release (DR/EC) 40 mg PO DAILY Qty: 30 RF: 0 Eliquis 5 mg tablet 5 mg PO BID Qty: 74 RF: 0 Mucinex 1,200 mg tablet extended release 12hr 1,200 mg PO BID Qty: 14 RF: 0 Referrals / Follow Up: Shahram Lowe MD [STAFF PHYSICIAN] - Within 2 Weeks (With Jose Antonio Viera in pulmonary clinic) Abhishek Smart MD [Primary Care Provider] - In 1 Week (PE.) Disposition Disposition (needs filled in before D/C Order can be placed): Home, Self Care
--- NOTE | 2021-06-19 11:22 | PCM.DC.SUM ---
Providers Date of Admission: 06/17/21 Primary Care Physician: Dr. Abhishek Smart MD Consultations 06/17/21 15:56 Consult: Infectious Disease Routine Consulting Provider: Tha Carrillo Reason for Consult: Covid-19 Pneumonia With PE,Severe COPD EMERGENT Consult: No Notified: Yes Date Notified: 06/17/21 Time Notified: 08:36 Method of Notification: Text 06/17/21 18:02 Consult: Rn Provider Relations / Pulmonary Medicine Routine Consulting Provider: Pulmonary Medicine braden Scooba Reason for Consult: b/l large PE with RV dilatation EMERGENT Consult: No Notified: Yes Date Notified: 06/17/21 Time Notified: 15:16 Method of Notification: Verbal Comments:: Notified by ER physician Dr. Lanier Reason For Visit: BILATERAL PE WITH RV DILATATION Diagnosis Discharge Diagnosis (1) Pulmonary emboli: Status: Acute Code(s): I26.99 - Other pulmonary embolism without acute cor pulmonale Qualifiers: Pulmonary embolism type: multiple subsegmental (without acute cor pulmonale) Qualified Code(s): I26.94 - Multiple subsegmental pulmonary emboli without acute cor pulmonale Medications at Discharge Home Medications apixaban [Eliquis] 5 mg PO BID #74 tab 06/19/21 dexamethasone 6 mg PO DAILY #11 tab 06/19/21 guaifenesin [Mucinex] 1,200 mg PO BID #14 tab 06/19/21 ipratropium-albuterol 3 ml INHALATION Q4H.RT PRN #90 ml 06/19/21 pantoprazole [Protonix] 40 mg PO DAILY #30 tab 06/19/21 Weight / BMI Weight Weight: 166 lb 0.129 oz Body Mass Index (BMI) 26.8 ABG / Lab / Microbiology Data Result Diagrams: 06/19/21 06:26 06/19/21 06:26 Laboratory: Laboratory Results - last 24 hr 06/19/21 06:26: WBC 12.6 H, RBC 3.75 L, Hgb 11.8 L, Hct 34.8 L, MCV 92.8, MCH 31.5, MCHC 33.9, RDW Std Deviation 46.7 H, RDW Coeff of [place] 14.1, Plt Count 248, MPV 9.7, Immature Gran % (Auto) 2.600 H, Neut % (Auto) 82.4 H, Lymph % (Auto) 8.2 L, [place] % (Auto) 6.6, Eos % (Auto) 0.0, Baso % (Auto) 0.2, Absolute Neuts (auto) 10.4 H, Absolute Lymphs (auto) 1.04, Nucleated RBC % 0 06/19/21 06:26: Sodium 142, Potassium 4.4, Chloride 114 H, Carbon Dioxide 22.0, Anion Gap 6, BUN 22 H, Creatinine 0.50 L, Estim Creat Clear Calc 109.21, Est GFR (MDRD) Af Amer 161, Est GFR (MDRD) Non-Af 133, BUN/Creatinine Ratio 44.1 H, Glucose 145 H, Calcium 8.4 L, Magnesium 1.6, Total Bilirubin 0.40, AST 27, ALT 65 H, Alkaline Phosphatase 137 H, Total Protein 5.7 L, Albumin 2.0 L, Globulin 3.7, Albumin/Globulin Ratio 0.5 L Microbiology: Microbiology 06/17/21 10:35 Nasal Secretion SARS-CoV-2 Antigen (Rapid) - Final Radiography Diagnostic Testing: Radiology Impression Echocardiogram 06/18/21 05:55 Interpretation Summary Normal LV size. Left ventricular systolic function is normal. The estimated ejection fraction is 60 %. Mild (1+) tricuspid valve insufficiency. Pulmonary artery systolic pressure is 34 mmHg. Ordering Physician: Willem Olivarez Referring Physician: RV FAILURE Performed By: Zahida Lehman RDCS, RVT D/C Instructions Discharge Diet: 2000 mg Sodium Diet Call your doctor if you observe: Fever of 101 or Higher, Coldness, Increased Pain, Numbness or Tingling, Change in Color, Inability to urinate, Inability to have a bowel movement, Using more than 1 pad per hour, Shortness of breath, Dizziness, Fainting spells, Swelling in the ankles, Chest pain, Prolonged hiccupping, Increased palpitations (irregular heartbeat), Calf discomfort and Uncontrolled pain Discharge Plan Admission Admit Date/Time: 06/17/21 15:16 Primary Reason for Your Visit: Acute hypoxic respiratory failure secondary to PE COVID-19 pneumonia Attending Provider: Willem Olivarez Primary Care Provider: Abhishek Smart Consulting Providers: Shahram Lowe ; Han Amin ; Loan Viera [employer]HIC[employer] DYNAM[employer] ENGINEER ; Tha Carrillo Discharge Orders/Prescriptions Prescriptions: New ipratropium-albuterol 0.5 mg-3 mg(2.5 mg base)/3 mL Solution For Nebulization 3 ml inhalation Q4H.RT PRN (Reason: SOB) Qty: 90 RF: 0 dexamethasone 4 mg Tablet 6 mg PO DAILY Qty: 11 RF: 0 pantoprazole [Protonix] 40 mg tablet,delayed release (DR/EC) 40 mg PO DAILY Qty: 30 RF: 0 Eliquis 5 mg tablet 5 mg PO BID Qty: 74 RF: 0 Mucinex 1,200 mg tablet extended release 12hr 1,200 mg PO BID Qty: 14 RF: 0 Referrals / Follow Up: Shahram Lowe MD [STAFF PHYSICIAN] - Within 2 Weeks (With Jose Antonio Viera in pulmonary clinic) Abhishek Smart MD [Primary Care Provider] - In 1 Week (PE.) Disposition Disposition (needs filled in before D/C Order can be placed): Home, Self Care
--- NOTE | 2021-06-19 11:41 | CASEMGMT ---
Addendum entered by Sosa Magana 06/19/21 12:58: Pt was only 88% walking on 10L so pt will not discharge today. Belen COVARRUBIAS CM Original Note: Ly COVARRUBIAS aware to complete ambulatory home oxygen testing and per Dr. Olivarez, if need more that 6L nc then will not be able to discharge today. CM to follow. Belen COVARRUBIAS CM
[2021-06-19] MEDS: Calcium Carbonate 500 MG Tablet 1000 MG PO ×2 (14:29→20:23)
--- NOTE | 2021-06-19 16:54 | PCM.PN.HOSP ---
Subjective Subjective Patient mild cough otherwise baseline but patient is hypoxic. On 4 L of oxygen but on ambulation 89 to 88% on 10 L of oxygen therefore her request for discharge canceled. Objective Data Objective Data Vital Signs: Vital Signs Temp Pulse Resp BP Pulse Ox 98.4 F 83 18 124/57 H 93 06/19/21 15:45 06/19/21 15:45 06/19/21 15:45 06/19/21 15:45 06/19/21 15:45 Oxygen Flow Rate (L/min) [ 10 AMBULATING with Oxygen #1] Oxygen Flow Rate (L/min) [At 4 REST with Oxygen] Oxygen Flow Rate (L/min) 4 Oxygen Delivery Method Nasal Cannula Weight: 166 lb 0.129 oz Body Mass Index (BMI) 26.8 Intake & Output: Intake and Output for Last 24 Hours 06/17/21 06/18/21 06/19/21 23:59 23:59 23:59 Intake Total 2250 / 2610 1480 / 1480 730 / 730 Output Total 0 / 0 Balance 2250 / 2610 1480 / 1480 730 / 730 Lab / Micro Data Result Diagrams: 06/19/21 06:26 06/19/21 06:26 Labs: Laboratory Results - last 24 hr 06/19/21 06:26: WBC 12.6 H, RBC 3.75 L, Hgb 11.8 L, Hct 34.8 L, MCV 92.8, MCH 31.5, MCHC 33.9, RDW Std Deviation 46.7 H, RDW Coeff of [place] 14.1, Plt Count 248, MPV 9.7, Immature Gran % (Auto) 2.600 H, Neut % (Auto) 82.4 H, Lymph % (Auto) 8.2 L, [place] % (Auto) 6.6, Eos % (Auto) 0.0, Baso % (Auto) 0.2, Absolute Neuts (auto) 10.4 H, Absolute Lymphs (auto) 1.04, Nucleated RBC % 0 06/19/21 06:26: Sodium 142, Potassium 4.4, Chloride 114 H, Carbon Dioxide 22.0, Anion Gap 6, BUN 22 H, Creatinine 0.50 L, Estim Creat Clear Calc 109.21, Est GFR (MDRD) Af Amer 161, Est GFR (MDRD) Non-Af 133, BUN/Creatinine Ratio 44.1 H, Glucose 145 H, Calcium 8.4 L, Magnesium 1.6, Total Bilirubin 0.40, AST 27, ALT 65 H, Alkaline Phosphatase 137 H, Total Protein 5.7 L, Albumin 2.0 L, Globulin 3.7, Albumin/Globulin Ratio 0.5 L Micro: Microbiology 06/17/21 10:30 Blood Culture (Wb) - Anticubital Right Blood Culture - Preliminary No growth in 48 hours. 06/17/21 10:35 Nasal Secretion SARS-CoV-2 Antigen (Rapid) - Final Physical Exam Narrative General: Alert, Oriented x3, Cooperative HEENT: Atraumatic, PERRLA, EOMI, Normocephalic Oral: No Gingival or Mucosal Lesions/ Ulcerations Neck: Supple, No JVD, Negative Carotid Bruits Lungs: Air entry severely diminished in bilateral lungs. Expiratory rhonchi present. Dyspnea on exertion. Cardiovascular: Regular rate, Regular Rhythm, Normal S1, Normal S2, No murmurs Abdomen: Bowel Sounds Present, Soft, Non Tender, Non-Distended : No renal angle tenderness. No suprapubic tenderness. Extremities: No edema, Capillary Refill Less than 3 Seconds Skin: No rashes, No breakdown Musculoskeletal: No Tenderness to Palpation of Joints or Extremities Neurological: Cranial nerves II-XII grossly intact, DTR 2+/4 and Symmetrical, Neuro grossly intact Psych/Mental Status: Normal Affect, Appropriate. Assessment & Plan Assessment/Plan (1) Pulmonary emboli: QUALIFIERS: Pulmonary embolism type: multiple subsegmental (without acute cor pulmonale) Qualified Code(s): I26.94 - Multiple subsegmental pulmonary emboli without acute cor pulmonale PLAN: This 60-year-old female admitted for acute pulmonary embolism and COVID-19 pneumonia 1. Acute hypoxic respiratory failure secondary to moderate bilateral acute pulmonary embolism, bilateral COVID-19 pneumonia: Patient is being admitted on PCU. COVID-19 enhanced droplet precaution. Started on Lovenox one 1 mg/kg body weight every 12. Although CT angiogram shows RV dilatation, troponin high-sensitivity and BNP are negative. 06/18: Echo shows normal RV size and systolic function EF 60%. Mild TR, RVSP 34 mmHg. 06/19: Patient severely hypoxic on exertion. Encouraged to continue incentive spirometry and PEP. Bronchodilator as needed. 2. Bilateral COVID-19 pneumonia: Patient has lactic acidosis. No fever, tachycardia but hypoxia. Start on Decadron 6 mg daily and remdesivir. As patient has severe emphysematous lung, pneumonia and RV dilatation and high risk for fluid overload/pulmonary edema 06/18: Mild hypokalemia potassium replaced. Discontinue IV fluid. 3. Severe emphysema as per CT scan: Patient did not had prior PFT evaluation. DuoNeb every 4 hourly. Incentive spirometry, Pep and Mucinex D. Bronchopulmonary hygiene. No BiPAP as patient high chances of pneumothorax on BiPAP 4. VTE prophylaxis: Already on therapeutic Lovenox. Discontinue if platelet count drops less than 50,000 or hemoglobin less than 8 g% Living will/advanced directive/end of life care: Patient does has living will or advanced directive. The mother is next to kin. After discussion of benefits/risks procedures involved with full code, DNR CC arrest and DNR CC, the patient opted for full code. Patient does want artificial life support including intubation, tube feed, ventilator and/chest compression, central venous catheter, vasopressor and DC shock if needed Total time spent in [id number] encounter in discussion of advanced directive 16 minutes. Clinical Impression(s) from Imaging Studies Chest X-Ray 06/17/21 10:29 IMPRESSION: X-ray examination of the chest degraded by suboptimal inspiratory effort with crowding. There is some prominence of the interstitium with scattered subsegmental sites of peripheral peribronchial thickening or fibronodular change, which may reflect chronic postinflammatory change. Question of early subsegmental volume loss or infection in the lateral left base. Chest CTA 06/17/21 11:43 IMPRESSION: 1. Moderate clot burden of acute pulmonary embolism, occlusive index 40-45%. 2. Acute right heart strain. 3. Acute, presumedly Covid pneumonia. 4. Severe emphysema. Charges/Coding Visit Charges Inpatient E&M: 51866 Subs Hosp L2
--- NOTE | 2021-06-19 18:39 | PCM.PN.INT ---
Assessment & Plan Assessment/Plan (1) Respiratory failure: (2) Pulmonary emboli: QUALIFIERS: Pulmonary embolism type: multiple subsegmental (without acute cor pulmonale) Qualified Code(s): I26.94 - Multiple subsegmental pulmonary emboli without acute cor pulmonale (3) Hypoxemia: PLAN: RECOMMENDATIONS: 1. Continue remdesivir and Decadron to complete recommended courses 2. Social work to evaluate for financial concerns 3. Encourage out of bed and incentive spirometer as tolerated 4. Wean supplemental oxygen as tolerated 5. Add as needed to scheduled bronchodilator therapy 6. Full anticoagulation IMPRESSIONS: 1. Acute hypoxic respiratory failure secondary to COVID-19 pneumonia and bilateral PEs Patient appears to have significant RV dilation on CT scan. Echocardiogram has been ordered. Patient should be on full anticoagulation. Decadron will be added to Remdesivir therapy. Wean supplemental oxygen as tolerated. Patient would benefit from incentive spirometer and out of bed as tolerated. Patient does not formally carry a diagnosis of COPD, but does have significant emphysematous changes noted. Patient will continue as needed albuterol added to DuoNeb therapy. Patient appears to have poor insight into her overall condition. Significant improvement over the last 24 hours likely secondary to resolution of PE. Echocardiogram showed significant RV strain and this should be repeated in 2 to 3 months. Patient may need to be bridged to Coumadin unless an assistance program for 10 a inhibitor is possible. We will need to check with social work. 2. Poor insight/advanced age/active tobacco abuse Complicates care, management, recovery and prognosis. Patient is a full code. Nicotine replacement was offered. Patient encouraged to quit smoking. Next of kin is reportedly her mother. Subjective Subjective Patient did well overnight. No acute issues were reported today. Patient did report concerns that she is a self-pay and I do not know how I am going to for this. Patient does report a cough, but reports this is largely nonproductive. Patient is not reporting any chest pain or hemoptysis. Objective Data Objective Data Vital Signs: Vital Signs Temp Pulse Resp BP Pulse Ox 36.9 C 83 18 124/57 H 93 06/19/21 15:45 06/19/21 15:45 06/19/21 15:45 06/19/21 15:45 06/19/21 15:45 Oxygen Flow Rate (L/min) [ 10 AMBULATING with Oxygen #1] Oxygen Flow Rate (L/min) [At 4 REST with Oxygen] Oxygen Flow Rate (L/min) 4 Oxygen Delivery Method Nasal Cannula Weight: 75.3 kg Body Mass Index (BMI) 26.8 Intake & Output: Intake and Output for Last 24 Hours 06/17/21 06/18/21 06/19/21 23:59 23:59 23:59 Intake Total 2250 / 2610 1480 / 1480 1210 / 1210 Output Total 0 / 0 Balance 2250 / 2610 1480 / 1480 1210 / 1210 Lab / Micro Data Result Diagrams: 06/19/21 06:26 06/19/21 06:26 Labs: Laboratory Results - last 24 hr 06/19/21 06:26: WBC 12.6 H, RBC 3.75 L, Hgb 11.8 L, Hct 34.8 L, MCV 92.8, MCH 31.5, MCHC 33.9, RDW Std Deviation 46.7 H, RDW Coeff of [place] 14.1, Plt Count 248, MPV 9.7, Immature Gran % (Auto) 2.600 H, Neut % (Auto) 82.4 H, Lymph % (Auto) 8.2 L, [place] % (Auto) 6.6, Eos % (Auto) 0.0, Baso % (Auto) 0.2, Absolute Neuts (auto) 10.4 H, Absolute Lymphs (auto) 1.04, Nucleated RBC % 0 06/19/21 06:26: Sodium 142, Potassium 4.4, Chloride 114 H, Carbon Dioxide 22.0, Anion Gap 6, BUN 22 H, Creatinine 0.50 L, Estim Creat Clear Calc 109.21, Est GFR (MDRD) Af Amer 161, Est GFR (MDRD) Non-Af 133, BUN/Creatinine Ratio 44.1 H, Glucose 145 H, Calcium 8.4 L, Magnesium 1.6, Total Bilirubin 0.40, AST 27, ALT 65 H, Alkaline Phosphatase 137 H, Total Protein 5.7 L, Albumin 2.0 L, Globulin 3.7, Albumin/Globulin Ratio 0.5 L Micro: Microbiology 06/17/21 10:30 Blood Culture (Wb) - Anticubital Right Blood Culture - Preliminary No growth in 48 hours. 06/17/21 10:35 Nasal Secretion SARS-CoV-2 Antigen (Rapid) - Final Physical Exam Const alert, oriented x3 and no apparent distress Constitutional Narrative: On nasal cannula sitting in chair General Appearance: cooperative and well developed HEENT normocephalic, head/scalp atraumatic and moist oral mucous membranes Eyes PERRL and EOMs intact bilaterally Neck full ROM and no lymphadenopathy Chest inspection of chest normal Resp normal respiratory effort and no use of accessory muscles Resp Narrative: Air exchange much improved Effort and Inspection: able to speak in complete sentences Auscultation: diminished lung sounds; Negative for rales, rhonchi or wheezes Percussion: Negative for dullness Cardio regular rate, regular rhythm, S1 normal heart sound, S2 normal heart sound, no murmurs, no rub and no gallops GI normal to inspection, nondistended, normoactive bowel sounds no CVA tenderness Extremity no clubbing, cyanosis or edema Skin no rashes or lesions noted Neuro oriented x3, CN's II-XII intact bilaterally, moves all extremities and no focal motor deficits Psych cooperative and affect normal Charges/Coding Visit Charges Inpatient E&M: 18655 Subs Hosp L2
[2021-06-19] MEDS: 0.9% Saline Lock 10 ML Syringe IV (20:23)
[2021-06-20] VITALS (14 sets, daily range): BP systolic 105–134; BP diastolic 55–79; PULSE 65–86; RESP 12–20; TEMP 36.3–37.1; O2SAT 88–94
[2021-06-20] MEDS: Calcium Carbonate 500 MG Tablet 1000 MG PO (00:44)
[2021-06-20] MEDS: Pantoprazole Sodium 20 MG Tablet PO ×2 (00:45→10:41)
[2021-06-20 07:08] LABS: Absolute Lymphocyte Count 1.41 X10^3/uL (0.83-4.51); Absolute Neutrophil Count 8.9 X10^3/uL (2.0-7.7); Basophil# 0.02 X10^3/uL; Basophil% 0.2 % (0-1); Hematocrit 37.4 % (37-47); Hemoglobin 12.2 g/dL (12.0-15.0); Lymphocyte # 1.41 X10^3/ul (0.83-4.51); Lymphocyte % 11.9 % (19-41); Mean Corp Hgb Conc 32.6 g/dL (32-36); Mean Corpuscular Hgb 30.7 pg (27.0-32.0); Mean Platelet Vol. 9.6 fl (6.2-12.0); Monocyte# 1.01 X10^3/uL; Monocyte% 8.6 % (0-10); NRBC Flagged by Analyzer 0.2 % (0-5); Neutrophil % 75.4 % (47-70); Platelet Count 276 K/mm3 (150-450); RBC Distribution Width CV 14.4 % (11.6-14.6); RBC Distribution Width SD 47.8 fl (35.1-43.9); Red Blood Count 3.98 M/mm3 (4.2-5.4); White Blood Count 11.8 K/mm3 (4.4-11.0)
[2021-06-20] MEDS: Ipratropium/Albuterol Sulfate 3 ML AMPUL.NEB INHALATION ×4 (07:17→23:45)
[2021-06-20 07:31] LABS: ALB/GLOB Ratio 0.6 RATIO (0.9-2.4); AST(SGOT) 22 U/L (15-37); Alanine Aminotransfer ALT/SGPT 57 U/L (13-56); Albumin, Serum 2.2 g/dL (3.2-5.0); Alkaline Phosphatase 129 U/L (45-117); Anion Gap 7 (5-15); BUN 21 mg/dL (7-18); BUN/Creat Ratio 32.6 RATIO (10-20); Calcium,Total 9.1 mg/dL (8.5-10.1); Chloride 111 mmol/L (98-107); Creatinine, Serum 0.64 mg/dL (0.55-1.02); EST Glomerular Filtration Rate 99 mL/min (>60); Est Glom Filt Rate - Afr Amer 120 mL/min (>60); Estimated Creatinine Clearance 85.32 ml/min; Globulin 3.5 g/dL (2.2-4.2); Glucose 132 mg/dL (74-106); Potassium 3.7 mmol/L (3.5-5.1); Protein, Total 5.7 g/dL (6.4-8.2); Sodium Level 142 mmol/L (136-145)
[2021-06-20] MEDS: dexAMETHasone 4 MG Tablet 6 MG PO (10:41)
[2021-06-20] MEDS: Enoxaparin 80 MG/0.8 ML Syringe SC ×2 (10:41→21:49)
[2021-06-20] MEDS: guaiFENesin/D-Methorphan TAB.SR.12H 1 TABLET PO ×2 (10:42→21:49)
[2021-06-20] MEDS: Potassium Chloride Oral Tablet 20 MEQ 40 MEQ PO (10:42)
[2021-06-20] MEDS: 0.9% Saline Lock 10 ML Syringe IV ×2 (10:44→21:50)
[2021-06-20] MEDS: Furosemide 40 MG/4 ML Vial IV (10:44)
--- NOTE | 2021-06-20 13:51 | PN.CC_ITS ---
Assessment & Plan Assessment/Plan (1) Respiratory failure: (2) Pulmonary emboli: QUALIFIERS: Pulmonary embolism type: multiple subsegmental (without acute cor pulmonale) Qualified Code(s): I26.94 - Multiple subsegmental pulmonary emboli without acute cor pulmonale (3) Hypoxemia: PLAN: RECOMMENDATIONS: 1. Continue remdesivir and Decadron to complete recommended courses 2. Social work to evaluate for financial concerns 3. Encourage out of bed and incentive spirometer as tolerated 4. Wean supplemental oxygen as tolerated 5. Continue scheduled bronchodilator therapy 6. Full anticoagulation 7. Given financial concerns, patient could be sent home with a 10 L oxygen concentrator, but this would be less than ideal IMPRESSIONS: 1. Acute hypoxic respiratory failure secondary to COVID-19 pneumonia and bilateral PEs Patient appears to have significant RV dilation on CT scan. Echocardiogram has been ordered. Patient should be on full anticoagulation. Decadron will be added to Remdesivir therapy. Wean supplemental oxygen as tolerated. Patient would benefit from incentive spirometer and out of bed as tolerated. Patient does not formally carry a diagnosis of COPD, but does have significant emphysematous changes noted. Patient will continue as needed albuterol added to DuoNeb therapy. Patient appears to have poor insight into her overall condition. Significant improvement over the last 24 hours likely secondary to resolution of PE. Echocardiogram showed significant RV strain and this should be repeated in 2 to 3 months. Patient may need to be bridged to Coumadin unless an assistance program for 10 a inhibitor is possible. We will need to check with social work. Patient likely should stay hospitalized with continue diuresis as tolerated. Patient demanded discharge, could attempt a high flow concentrator, but this would be less than ideal in controlling symptoms. This would increase the risk of readmission or decompensation at home 2. Poor insight/advanced age/active tobacco abuse Complicates care, management, recovery and prognosis. Patient is a full code. Nicotine replacement was offered. Patient encouraged to quit smoking. Next of kin is reportedly her mother. Subjective Subjective Patient did okay overnight. Patient is stating that she feels she can go home with the current settings. Discussed with the nurse and he stated the patient desaturated to 89% despite 8 L of nasal cannula oxygen. Objective Data Objective Data Vital Signs: Vital Signs Temp Pulse Resp BP Pulse Ox 36.3 C L 78 18 109/55 L 88 06/20/21 10:30 06/20/21 10:30 06/20/21 10:30 06/20/21 10:30 06/20/21 10:50 Oxygen Flow Rate (L/min) [ 8 AMBULATING with Oxygen #1] Oxygen Flow Rate (L/min) [At 2 REST with Oxygen] Oxygen Flow Rate (L/min) 4 Oxygen Delivery Method Nasal Cannula Weight: 75.3 kg Body Mass Index (BMI) 26.8 Intake & Output: Intake and Output for Last 24 Hours 06/18/21 06/19/21 06/20/21 23:59 23:59 23:59 Intake Total 1480 / 1480 1460 / 1460 Output Total 0 / 0 Balance 1480 / 1480 1460 / 1460 Lab / Micro Data Result Diagrams: 06/20/21 06:35 06/20/21 06:35 Labs: Laboratory Results - last 24 hr 06/20/21 06:35: WBC 11.8 H, RBC 3.98 L, Hgb 12.2, Hct 37.4, MCV 94.0, MCH 30.7, MCHC 32.6, RDW Std Deviation 47.8 H, RDW Coeff of [place] 14.4, Plt Count 276, MPV 9.6, Immature Gran % (Auto) 3.900 H, Neut % (Auto) 75.4 H, Lymph % (Auto) 11.9 L , [place] % (Auto) 8.6, Eos % (Auto) 0.0, Baso % (Auto) 0.2, Absolute Neuts (auto) 8.9 H, Absolute Lymphs (auto) 1.41, Nucleated RBC % 0.2 06/20/21 06:35: Sodium 142, Potassium 3.7, Chloride 111 H, Carbon Dioxide 24.0, Anion Gap 7, BUN 21 H, Creatinine 0.64, Estim Creat Clear Calc 85.32, Est GFR (MDRD) Af Amer 120, Est GFR (MDRD) Non-Af 99, BUN/Creatinine Ratio 32.6 H, Glucose 132 H, Calcium 9.1, Total Bilirubin 0.40, AST 22, ALT 57 H, Alkaline Phosphatase 129 H, Total Protein 5.7 L, Albumin 2.2 L, Globulin 3.5, Albumin/Globulin Ratio 0.6 L Micro: Microbiology 06/17/21 10:30 Blood Culture (Wb) - Anticubital Right Blood Culture - Preliminary No growth in 48 hours. 06/17/21 10:35 Nasal Secretion SARS-CoV-2 Antigen (Rapid) - Final Physical Exam Const alert, oriented x3 and no apparent distress Constitutional Narrative: On nasal cannula sitting in bed General Appearance: cooperative and well developed HEENT normocephalic, head/scalp atraumatic and moist oral mucous membranes Eyes PERRL and EOMs intact bilaterally Neck full ROM and no lymphadenopathy Chest inspection of chest normal Resp normal respiratory effort and no use of accessory muscles Resp Narrative: Air exchange good Effort and Inspection: able to speak in complete sentences Auscultation: diminished lung sounds; Negative for rales, rhonchi or wheezes Percussion: Negative for dullness Cardio regular rate, regular rhythm, S1 normal heart sound, S2 normal heart sound, no murmurs, no rub and no gallops GI normal to inspection, nondistended, normoactive bowel sounds no CVA tenderness Extremity no clubbing, cyanosis or edema Skin no rashes or lesions noted Neuro oriented x3, CN's II-XII intact bilaterally, moves all extremities and no focal motor deficits Psych cooperative and affect normal Charges/Coding Visit Charges Inpatient E&M: 15557 Subs Hosp L2
--- NOTE | 2021-06-20 14:07 | PN.HOSP_ITS ---
Subjective Subjective There is no increase in cough or sputum production or dyspnea but patient gets hypoxic on ambulation. Objective Data Objective Data Vital Signs: Vital Signs Temp Pulse Resp BP Pulse Ox 97.3 F L 78 18 109/55 L 88 06/20/21 10:30 06/20/21 10:30 06/20/21 10:30 06/20/21 10:30 06/20/21 10:50 Oxygen Flow Rate (L/min) [ 8 AMBULATING with Oxygen #1] Oxygen Flow Rate (L/min) [At 2 REST with Oxygen] Oxygen Flow Rate (L/min) 4 Oxygen Delivery Method Nasal Cannula Weight: 166 lb 0.129 oz Body Mass Index (BMI) 26.8 Intake & Output: Intake and Output for Last 24 Hours 06/18/21 06/19/21 06/20/21 23:59 23:59 23:59 Intake Total 1480 / 1480 1460 / 1460 Output Total 0 / 0 Balance 1480 / 1480 1460 / 1460 Lab / Micro Data Result Diagrams: 06/20/21 06:35 06/20/21 06:35 Labs: Laboratory Results - last 24 hr 06/20/21 06:35: WBC 11.8 H, RBC 3.98 L, Hgb 12.2, Hct 37.4, MCV 94.0, MCH 30.7, MCHC 32.6, RDW Std Deviation 47.8 H, RDW Coeff of Gary 14.4, Plt Count 276, MPV 9.6, Immature Gran % (Auto) 3.900 H, Neut % (Auto) 75.4 H, Lymph % (Auto) 11.9 L , [place] % (Auto) 8.6, Eos % (Auto) 0.0, Baso % (Auto) 0.2, Absolute Neuts (auto) 8.9 H, Absolute Lymphs (auto) 1.41, Nucleated RBC % 0.2 06/20/21 06:35: Sodium 142, Potassium 3.7, Chloride 111 H, Carbon Dioxide 24.0, Anion Gap 7, BUN 21 H, Creatinine 0.64, Estim Creat Clear Calc 85.32, Est GFR (MDRD) Af Amer 120, Est GFR (MDRD) Non-Af 99, BUN/Creatinine Ratio 32.6 H, Glucose 132 H, Calcium 9.1, Total Bilirubin 0.40, AST 22, ALT 57 H, Alkaline Phosphatase 129 H, Total Protein 5.7 L, Albumin 2.2 L, Globulin 3.5, Al bumin/Globulin Ratio 0.6 L Micro: Microbiology 06/17/21 10:30 Blood Culture (Wb) - Anticubital Right Blood Culture - Pre liminary No growth in 48 hours. 06/17/21 10:35 Nasal Secretion SARS-CoV-2 Antigen (Rapid) - Final Physical Exam Narrative Physical exam General: Alert, Oriented x3, Cooperative HEENT: Atraumatic, PERRLA, EOMI, Normocephalic Oral: No Gingival or Mucosal Lesions/ Ulcerations Neck: Supple, No JVD, Negative Carotid Bruits Lungs: Air entry severely diminished in bilateral lungs. Expiratory rhonchi present. Dyspnea on exertion. Cardiovascular: Regular rate, Regular Rhythm, Normal S1, Normal S2, No murmurs Abdomen: Bowel Sounds Present, Soft, Non Tender, Non-Distended : No renal angle tenderness. No suprapubic tenderness. Extremities: No edema, Capillary Refill Less than 3 Seconds Skin: No rashes, No breakdown Musculoskeletal: No Tenderness to Palpation of Joints or Extremities Neurological: Cranial nerves II-XII grossly intact, DTR 2+/4 and Symmetrical, Neuro grossly intact Psych/Mental Status: Normal Affect, Appropriate. Assessment & Plan Assessment/Plan (1) Pulmonary emboli: QUALIFIERS: Pulmonary embolism type: multiple subsegmental (without acute cor pulmonale) Qualified Code(s): I26.94 - Multiple subsegmental pulmonary emboli without acute cor pulmonale PLAN: This 60-year-old female admitted for acute pulmonary embolism and COVID-19 pneumonia 1. Acute hypoxic respiratory failure secondary to moderate bilateral acute pulmonary embolism, bilateral COVID-19 pneumonia: Patient is being admitted on PCU. COVID-19 enhanced droplet precaution. Started on Lovenox one 1 mg/kg body weight every 12. Although CT angiogram shows RV dilatation, troponin high- sensitivity and BNP are negative. 06/18: Echo shows normal RV size and systolic function EF 60%. Mild TR, RVSP 34 mmHg. 06/19: Patient severely hypoxic on exertion. Encouraged to continue incentive spirometry and PEP. Bronchodilator as needed. 06/20: Walking pulse oximetry was done. 88% on room air at rest, 92% at rest on 2 L of oxygen, 89% on 8 L of oxygen on ambulation 2. Bilateral COVID-19 pneumonia: Patient has lactic acidosis. No fever, tachycardia but hypoxia. Start on Decadron 6 mg daily and remdesivir. As rhett hall has severe emphysematous lung, pneumonia and RV dilatation and high risk for fluid overload/pulmonary edema 06/18: Mild hypokalemia potassium replaced. Discontinue IV fluid. 3. Severe emphysema as per CT scan: Patient did not had prior PFT evaluation. DuoNeb every 4 hourly. Incentive spirometry, Pep and Mucinex D. Bronchopulmonary hygiene. No BiPAP as patient high chances of pneumothorax on BiPAP 4. VTE prophylaxis: Already on therapeutic Lovenox. Discontinue if platelet count drops less than 50,000 or hemoglobin less than 8 g% Living will/advanced directive/end of life care: Patient does has living will or advanced directive. The mother is next to kin. After discussion of benefits/risks procedures involved with full code, DNR CC arrest and DNR CC, the patient opted for full code. Patient does want artificial life support including intubation, tube feed, ventilator and/chest compression, central venous catheter, vasopressor and DC shock if needed Total time spent in [id number] encounter in discussion of advanced directive 16 minutes. Clinical Impression(s) from Imaging Studies Chest CTA 06/17/21 11:43 IMPRESSION: 1. Moderate clot burden of acute pulmonary embolism, occlusive index 40-45%. 2. Acute right heart strain. 3. Acute, presumedly Covid pneumonia. 4. Severe emphysema. Charges/Coding Visit Charges Inpatient E&M: 33978 Subs Hosp L2
[2021-06-21] VITALS (15 sets, daily range): BP systolic 98–121; BP diastolic 56–58; PULSE 66–86; RESP 16–20; TEMP 36.2–36.8; O2SAT 87–96
[2021-06-21 05:42] LABS: Absolute Lymphocyte Count 1.76 X10^3/uL (0.83-4.51); Absolute Neutrophil Count 7.9 X10^3/uL (2.0-7.7); Basophil# 0.03 X10^3/uL; Basophil% 0.3 % (0-1); Hematocrit 37.2 % (37-47); Hemoglobin 12.3 g/dL (12.0-15.0); Lymphocyte # 1.76 X10^3/ul (0.83-4.51); Lymphocyte % 15.8 % (19-41); Mean Corp Hgb Conc 33.1 g/dL (32-36); Mean Corpuscular Hgb 30.8 pg (27.0-32.0); Mean Corpuscular Volume 93.2 fL (81-99); Mean Platelet Vol. 9.3 fl (6.2-12.0); Monocyte# 1.01 X10^3/uL; Monocyte% 9.1 % (0-10); NRBC Flagged by Analyzer 0.2 % (0-5); Neutrophil # 7.89 X10^3/uL (2.7-7.7); Neutrophil % 70.8 % (47-70); Platelet Count 246 K/mm3 (150-450); RBC Distribution Width CV 14.4 % (11.6-14.6); RBC Distribution Width SD 47.6 fl (35.1-43.9); Red Blood Count 3.99 M/mm3 (4.2-5.4); White Blood Count 11.1 K/mm3 (4.4-11.0)
[2021-06-21 06:08] LABS: ALB/GLOB Ratio 0.6 RATIO (0.9-2.4); AST(SGOT) 37 U/L (15-37); Alanine Aminotransfer ALT/SGPT 66 U/L (13-56); Albumin, Serum 2.2 g/dL (3.2-5.0); Alkaline Phosphatase 133 U/L (45-117); Anion Gap 6 (5-15); BUN 19 mg/dL (7-18); BUN/Creat Ratio 28.1 RATIO (10-20); Calcium,Total 8.6 mg/dL (8.5-10.1); Chloride 109 mmol/L (98-107); Creatinine, Serum 0.68 mg/dL (0.55-1.02); EST Glomerular Filtration Rate 94 mL/min (>60); Est Glom Filt Rate - Afr Amer 113 mL/min (>60); Globulin 3.6 g/dL (2.2-4.2); Glucose 111 mg/dL (74-106); Potassium 4.3 mmol/L (3.5-5.1); Protein, Total 5.8 g/dL (6.4-8.2); Sodium Level 140 mmol/L (136-145)
[2021-06-21] MEDS: Ipratropium/Albuterol Sulfate 3 ML AMPUL.NEB INHALATION ×5 (07:29→23:37)
[2021-06-21] MEDS: Pantoprazole Sodium 20 MG Tablet PO (09:51)
[2021-06-21] MEDS: dexAMETHasone 4 MG Tablet 6 MG PO (09:51)
[2021-06-21] MEDS: guaiFENesin/D-Methorphan TAB.SR.12H 1 TABLET PO ×2 (09:51→22:16)
[2021-06-21] MEDS: Enoxaparin 80 MG/0.8 ML Syringe SC ×2 (09:51→22:16)
--- NOTE | 2021-06-21 10:39 | PN.CC_ITS ---
Assessment & Plan Assessment/Plan (1) Respiratory failure: (2) Pulmonary emboli: QUALIFIERS: Pulmonary embolism type: multiple subsegmental (without acute cor pulmonale) Qualified Code(s): I26.94 - Multiple subsegmental pulmonary emboli without acute cor pulmonale (3) Hypoxemia: PLAN: RECOMMENDATIONS: 1. Continue remdesivir and Decadron to complete recommended courses 2. Social work to evaluate for financial concerns 3. Encourage out of bed and incentive spirometer as tolerated 4. Wean supplemental oxygen as tolerated 5. Continue scheduled bronchodilator therapy 6. Full anticoagulation. Continue diuretics as tolerated 7. Given financial concerns, patient could be sent home with a 10 L oxygen concentrator, but this would be less than ideal IMPRESSIONS: 1. Acute hypoxic respiratory failure secondary to COVID-19 pneumonia and bilateral PEs Patient appears to have significant RV dilation on CT scan. Echocardiogram has been ordered. Patient should be on full anticoagulation. Decadron will be added to Remdesivir therapy. Wean supplemental oxygen as tolerated. Patient would benefit from incentive spirometer and out of bed as tolerated. Patient does not formally carry a diagnosis of COPD, but does have significant emphysematous changes noted. Patient will continue as needed albuterol added to DuoNeb therapy. Patient appears to have poor insight into her overall condition. Significant improvement over the last 24 hours likely secondary to resolution of PE. Echocardiogram showed significant RV strain and this should be repeated in 2 to 3 months. Patient may need to be bridged to Coumadin unless an assistance program for 10 a inhibitor is possible. We will need to check with social work. We will continue to diurese as tolerated while hospitalized. If patient demanded discharge, could attempt a high flow concentrator, but this would be less than ideal in controlling symptoms and facilitating travel back home. This would increase the risk of readmission or decompensation at home 2. Poor insight/advanced age/active tobacco abuse Complicates care, management, recovery and prognosis. Patient is a full code. Nicotine replacement was offered. Patient encouraged to quit smoking. Next of kin is reportedly her mother. Subjective Subjective Patient did okay overnight. Patient subjectively feels improved compared to previous. Patient continues to have a cough that is intermittently productive. Objective Data Objective Data Vital Signs: Vital Signs Temp Pulse Resp BP Pulse Ox 36.7 C 82 18 121/56 H 87 06/21/21 09:47 06/21/21 09:47 06/21/21 09:47 06/21/21 09:47 06/21/21 10:13 Oxygen Flow Rate (L/min) [ 8 AMBULATING with Oxygen #1] Oxygen Flow Rate (L/min) [At 4 REST with Oxygen] Oxygen Flow Rate (L/min) 4 Oxygen Delivery Method Nasal Cannula Weight: 75.3 kg Body Mass Index (BMI) 26.8 Intake & Output: Intake and Output for Last 24 Hours 06/19/21 06/20/21 06/21/21 23:59 23:59 23:59 Intake Total 1460 / 1460 250 / 250 Balance 1460 / 1460 250 / 250 Lab / Micro Data Result Diagrams: 06/21/21 05:24 06/21/21 05:24 Labs: Laboratory Results - last 24 hr 06/21/21 05:24: WBC 11.1 H, RBC 3.99 L, Hgb 12.3, Hct 37.2, MCV 93.2, MCH 30.8, MCHC 33.1, RDW Std Deviation 47.6 H, RDW Coeff of [place] 14.4, Plt Count 246, MPV 9.3, Immature Gran % (Auto) 4.000 H, Neut % (Auto) 70.8 H, Lymph % (Auto) 15.8 L , [place] % (Auto) 9.1, Eos % (Auto) 0.0, Baso % (Auto) 0.3, Absolute Neuts (auto) 7.9 H, Absolute Lymphs (auto) 1.76, Nucleated RBC % 0.2 06/21/21 05:24: Sodium 140, Potassium 4.3, Chloride 109 H, Carbon Dioxide 25.0, Anion Gap 6, BUN 19 H, Creatinine 0.68, Estim Creat Clear Calc 80.30, Est GFR (MDRD) Af Amer 113, Est GFR (MDRD) Non-Af 94, BUN/Creatinine Ratio 28.1 H, Glucose 111 H, Calcium 8.6, Total Bilirubin 0.40, AST 37, ALT 66 H, Alkaline Phosphatase 133 H, Total Protein 5.8 L, Albumin 2.2 L, Globulin 3.6, Al bumin/Globulin Ratio 0.6 L Micro: Microbiology 06/17/21 10:30 Blood Culture (Wb) - Anticubital Right Blood Culture - Pre liminary No growth in 48 hours. 06/17/21 10:35 Nasal Secretion SARS-CoV-2 Antigen (Rapid) - Final Physical Exam Const alert, oriented x3 and no apparent distress Constitutional Narrative: On nasal cannula sitting in chair General Appearance: cooperative and well developed HEENT normocephalic, head/scalp atraumatic and moist oral mucous membranes Eyes PERRL and EOMs intact bilaterally Neck full ROM and no lymphadenopathy Chest inspection of chest normal Resp normal respiratory effort and no use of accessory muscles Resp Narrative: Air exchange good Effort and Inspection: able to speak in complete sentences Auscultation: diminished lung sounds; Negative for rales, rhonchi or wheezes Percussion: Negative for dullness Cardio regular rate, regular rhythm, S1 normal heart sound, S2 normal heart sound, no murmurs, no rub and no gallops GI normal to inspection, nondistended, normoactive bowel sounds no CVA tenderness Extremity no clubbing, cyanosis or edema Skin no rashes or lesions noted Neuro oriented x3, CN's II-XII intact bilaterally, moves all extremities and no focal motor deficits Psych cooperative and affect normal Charges/Coding Visit Charges Inpatient E&M: 45429 Subs Hosp L2
[2021-06-21] MEDS: Furosemide 40 MG Tablet PO ×2 (12:34→17:46)
--- NOTE | 2021-06-21 18:21 | PN.HOSP_ITS ---
Subjective Subjective Patient 96% on 3 to 4 L of oxygen but on ambulation increases to 8 L/min. Afebrile Objective Data Objective Data Vital Signs: Vital Signs Temp Pulse Resp BP Pulse Ox 97.6 F L 82 16 112/58 L 96 06/21/21 16:27 06/21/21 16:27 06/21/21 16:27 06/21/21 16:27 06/21/21 16:27 Oxygen Flow Rate (L/min) [ 8 AMBULATING with Oxygen #1] Oxygen Flow Rate (L/min) [At 4 REST with Oxygen] Oxygen Flow Rate (L/min) 3 Oxygen Delivery Method Nasal Cannula Weight: 166 lb 0.129 oz Body Mass Index (BMI) 26.8 Intake & Output: Intake and Output for Last 24 Hours 06/19/21 06/20/21 06/21/21 23:59 23:59 23:59 Intake Total 1460 / 1460 730 / 730 Balance 1460 / 1460 730 / 730 Lab / Micro Data Result Diagrams: 06/21/21 05:24 06/21/21 05:24 Labs: Laboratory Results - last 24 hr 06/21/21 05:24: WBC 11.1 H, RBC 3.99 L, Hgb 12.3, Hct 37.2, MCV 93.2, MCH 30.8, MCHC 33.1, RDW Std Deviation 47.6 H, RDW Coeff of [place] 14.4, Plt Count 246, MPV 9.3, Immature Gran % (Auto) 4.000 H, Neut % (Auto) 70.8 H, Lymph % (Auto) 15.8 L , [place] % (Auto) 9.1, Eos % (Auto) 0.0, Baso % (Auto) 0.3, Absolute Neuts (auto) 7.9 H, Absolute Lymphs (auto) 1.76, Nucleated RBC % 0.2 06/21/21 05:24: Sodium 140, Potassium 4.3, Chloride 109 H, Carbon Dioxide 25.0, Anion Gap 6, BUN 19 H, Creatinine 0.68, Estim Creat Clear Calc 80.30, Est GFR (MDRD) Af Amer 113, Est GFR (MDRD) Non-Af 94, BUN/Creatinine Ratio 28.1 H, Glucose 111 H, Calcium 8.6, Total Bilirubin 0.40, AST 37, ALT 66 H, Alkaline Phosphatase 133 H, Total Protein 5.8 L, Albumin 2.2 L, Globulin 3.6, Albumin/Globulin Ratio 0.6 L Micro: Microbiology 06/17/21 10:30 Blood Culture (Wb) - Anticubital Right Blood Culture - Preliminary No growth in 48 hours. 06/17/21 10:35 Nasal Secretion SARS-CoV-2 Antigen (Rapid) - Final Physical Exam Narrative Physical exam General: Alert, Oriented x3, Cooperative HEENT: Atraumatic, PERRLA, EOMI, Normocephalic Oral: No Gingival or Mucosal Lesions/ Ulcerations Neck: Supple, No JVD, Negative Carotid Bruits Lungs: Air entry severely diminished in bilateral lungs. Expiratory rhonchi present. Dyspnea on exertion. Hypoxia present. Cardiovascular: Regular rate, Regular Rhythm, Normal S1, Normal S2, No murmurs Abdomen: Bowel Sounds Present, Soft, Non Tender, Non-Distended : No renal angle tenderness. No suprapubic tenderness. Extremities: No edema, Capillary Refill Less than 3 Seconds Skin: No rashes, No breakdown Musculoskeletal: No Tenderness to Palpation of Joints or Extremities Neurological: Cranial nerves II-XII grossly intact, DTR 2+/4 and Symmetrical, Neuro grossly intact Psych/Mental Status: Normal Affect, Appropriate. Assessment & Plan Assessment/Plan (1) Pulmonary emboli: QUALIFIERS: Pulmonary embolism type: multiple subsegmental (without acute cor pulmonale) Qualified Code(s): I26.94 - Multiple subsegmental pulmonary emboli without acute cor pulmonale PLAN: This 60-year-old female admitted for acute pulmonary embolism and COVID-19 pneumonia 1. Acute hypoxic respiratory failure secondary to moderate bilateral acute pulmonary embolism, bilateral COVID-19 pneumonia: Patient is being admitted on PCU. COVID-19 enhanced droplet precaution. Started on Lovenox one 1 mg/kg body weight every 12. Although CT angiogram shows RV dilatation, troponin high- sensitivity and BNP are negative. 06/18: Echo shows normal RV size and systolic function EF 60%. Mild TR, RVSP 34 mmHg. 06/19: Patient severely hypoxic on exertion. Encouraged to continue incentive spirometry and PEP. Bronchodilator as needed. 06/20: Walking pulse oximetry was done. 88% on room air at rest, 92% at rest on 2 L of oxygen, 89% on 8 L of oxygen on ambulation 06/21: Severe hypoxia. On ambulation pulse ox 89% on 8 L of oxygen. At rest 95% on 4 L of oxygen. 2. Bilateral COVID-19 pneumonia: Patient has lactic acidosis. No fever, tach ycardia but hypoxia. Start on Decadron 6 mg daily and remdesivir. As patient has severe emphysematous lung, pneumonia and RV dilatation and high risk for fluid overload/pulmonary edema 06/18: Mild hypokalemia potassium replaced. Discontinue IV fluid. 06/21: Continue remdesivir and Decadron. 3. Severe emphysema as per CT scan: Patient did not had prior PFT evaluation. DuoNeb every 4 hourly. Incentive spirometry, Pep and Mucinex D. Bronchopulmonary hygiene. No BiPAP as patient high chances of pneumothorax on BiPAP 4. VTE prophylaxis: Already on therapeutic Lovenox. Discontinue if platelet count drops less than 50,000 or hemoglobin less than 8 g% Living will/advanced directive/end of life care: Patient does has living will or advanced directive. The mother is next to kin. After discussion of benefits/risks procedures involved with full code, DNR CC arrest and DNR CC, the patient opted for full code. Patient does want artificial life support including intubation, tube feed, ventilator and/chest compression, central venous catheter, vasopressor and DC shock if needed Total time spent in [id number] encounter in discussion of advanced directive 16 minutes. Clinical Impression(s) from Imaging Studies Chest CTA 06/17/21 11:43 IMPRESSION: 1. Moderate clot burden of acute pulmonary embolism, occlusive index 40-45%. 2. Acute right heart strain. 3. Acute, presumedly Covid pneumonia. 4. Severe emphysema. Active Medications Acetaminophen (Acetaminophen 325 Mg Tablet) 650 mg PO Q6H PRN PRN PRN Reason: Pain Score 1-10/Temp > 100.7 F Albuterol Sulfate (Albuterol 2.5 Mg/3 Ml Vial.Neb.) 2.5 mg INHALATION Q4H PRN PRN Reason: SHORTNESS OF BREATH Albuterol/Ipratropium (Ipratropium/Albuterol Sulfate 3 Ml Ampul.Neb) 3 ml INHALATION Q4H.RT LEOLA Last Admin: 06/21/21 15:34 Dose: 3 ml Documented by: Calcium Carbonate (Calcium Carbonate 500 Mg Tablet) 1,000 mg PO Q4H PRN PRN PRN Reason: HEARTBURN OR INDIGESTION Last Admin: 06/20/21 00:44 Dose: 1,000 mg Documented by: Dexamethasone (Dexamethasone 4 Mg Tablet) 6 mg PO DAILY [facility] Stop: 06/27/21 10:01 Last Admin: 06/21/21 09:51 Dose: 6 mg Documented by: Enoxaparin Sodium (Enoxaparin 80 Mg/0.8 Ml Syringe) 80 mg SC Q12 [facility] Last Admin: 06/21/21 09:51 Dose: 80 mg Documented by: Guaifenesin (Guaifenesin/D-Methorphan Tab.Sr.12h) 1 tablet PO BID [facility] Last Admin: 06/21/21 09:51 Dose: 1 tablet Documented by: Remdesivir 100 mg/ Sodium (Chloride) 250 mls @ 125 mls/hr IV DAILY@2200 [facility]; Protocol Stop: 06/21/21 23:59 Last Infusion: 06/21/21 00:25 Dose: Infused Documented by: Nitroglycerin (Nitroglycerin (Inpatient Use) 0.4 Mg Tab.Subl) 0.4 mg SL Q5M PRN PRN Reason: CARDIAC/CHEST PAIN Pantoprazole Sodium (Pantoprazole Sodium 20 Mg Tablet) 20 mg PO DAILY [facility] Last Admin: 06/21/21 09:51 Dose: 20 mg Documented by: Prochlorperazine Edisylate (Prochlorperazine 10 Mg/2 Ml Vial) 5 mg IV Q4H PRN PRN PRN Reason: Breakthrough Nausea/Vomiting Senna/Docusate Sodium (Senna/Docusate Sodium 1 Tablet) 2 tablet PO BID PRN PRN PRN Reason: Constipation Sodium Chloride (0.9% Saline Lock 10 Ml Syringe) 10 - 40 ml IV UD PRN PRN Reason: SALINE FLUSH Last Admin: 06/20/21 21:50 Dose: 10 ml Documented by: Charges/Coding Visit Charges Inpatient E&M: 35034 Subs Hosp L2
[2021-06-22] VITALS (13 sets, daily range): BP systolic 103–109; BP diastolic 56–57; PULSE 76–106; RESP 12–20; TEMP 36.2–36.9; O2SAT 84–96
[2021-06-22] MEDS: Ipratropium/Albuterol Sulfate 3 ML AMPUL.NEB INHALATION ×4 (03:37→15:40)
[2021-06-22 08:05] LABS: Anion Gap 8 (5-15); BUN 18 mg/dL (7-18); BUN/Creat Ratio 23.4 RATIO (10-20); Calcium,Total 8.4 mg/dL (8.5-10.1); Chloride 103 mmol/L (98-107); Creatinine, Serum 0.77 mg/dL (0.55-1.02); EST Glomerular Filtration Rate 81 mL/min (>60); Est Glom Filt Rate - Afr Amer 98 mL/min (>60); Estimated Creatinine Clearance 70.92 ml/min; Glucose 103 mg/dL (74-106); Potassium 3.7 mmol/L (3.5-5.1); Sodium Level 138 mmol/L (136-145)
[2021-06-22] MEDS: dexAMETHasone 4 MG Tablet 6 MG PO (09:32)
[2021-06-22] MEDS: Pantoprazole Sodium 20 MG Tablet PO (09:33)
[2021-06-22] MEDS: guaiFENesin/D-Methorphan TAB.SR.12H 1 TABLET PO (09:33)
[2021-06-22] MEDS: Enoxaparin 80 MG/0.8 ML Syringe SC (09:33)
--- NOTE | 2021-06-22 11:13 | PCM.PN.INT ---
Assessment & Plan Assessment/Plan (1) Respiratory failure: (2) Pulmonary emboli: QUALIFIERS: Pulmonary embolism type: multiple subsegmental (without acute cor pulmonale) Qualified Code(s): I26.94 - Multiple subsegmental pulmonary emboli without acute cor pulmonale (3) Hypoxemia: PLAN: RECOMMENDATIONS: 1. Completed Remdesivir. Patient should complete a total of 10 days of Decadron 2. Okay to discharge if able to tolerate ambulation on 6 L 3. Encourage out of bed and incentive spirometer as tolerated 4. No need to schedule a follow-up in our office as patient plans to go back to [place] 5. Continue scheduled bronchodilator therapy 6. Continue full anticoagulation. Continue diuretics as tolerated 7. Patient recommended to establish with a assistant superintendent for curriculum in [place] on return. Patient likely needs an echocardiogram in 2 to 3 months. IMPRESSIONS: 1. Acute hypoxic respiratory failure secondary to COVID-19 pneumonia and bilateral PEs Patient appears to have significant RV dilation on CT scan. Echocardiogram has been ordered. Patient should be on full anticoagulation. Decadron will be added to Remdesivir therapy. Wean supplemental oxygen as tolerated. Patient would benefit from incentive spirometer and out of bed as tolerated. Patient does not formally carry a diagnosis of COPD, but does have significant emphysematous changes noted. Patient will continue as needed albuterol added to DuoNeb therapy. Patient overall continues to improve. Patient can likely be discharged in the next 24 hours. Stressed to the patient the importance of establish with a assistant superintendent for curriculum for follow-up on concerns for right heart strain, emphysematous changes and need for supplemental oxygen. Patient likely does not need an appointment in our office if this can be established. 2. Poor insight/advanced age/active tobacco abuse Complicates care, management, recovery and prognosis. Patient is a full code. Nicotine replacement was offered. Patient encouraged to quit smoking. Next of kin is reportedly her mother. Subjective Subjective Patient is doing well this morning. Patient states that she was able to ambulate with her nurse this morning. Patient states she continues to have a mild cough, but overall feels subjectively improved. Objective Data Objective Data Vital Signs: Vital Signs Temp Pulse Resp BP Pulse Ox 36.7 C 83 20 H 108/56 L 90 06/22/21 09:15 06/22/21 10:50 06/22/21 10:50 06/22/21 09:15 06/22/21 09:24 Oxygen Flow Rate (L/min) [ 6 AMBULATING with Oxygen #3] Oxygen Flow Rate (L/min) [ 4 AMBULATING with Oxygen #2] Oxygen Flow Rate (L/min) [ 3 AMBULATING with Oxygen #1] Oxygen Flow Rate (L/min) [At 4 REST with Oxygen] Oxygen Flow Rate (L/min) 3 Oxygen Delivery Method Nasal Cannula Weight: 75.3 kg Body Mass Index (BMI) 26.8 Intake & Output: Intake and Output for Last 24 Hours 06/20/21 06/21/21 06/22/21 23:59 23:59 23:59 Intake Total 730 / 730 250 / 250 Balance 730 / 730 250 / 250 Lab / Micro Data Result Diagrams: 06/21/21 05:24 06/22/21 07:30 Labs: Laboratory Results - last 24 hr 06/22/21 07:30: Sodium 138, Potassium 3.7, Chloride 103, Carbon Dioxide 27.0, Anion Gap 8, BUN 18, Creatinine 0.77, Estim Creat Clear Calc 70.92, Est GFR (MDRD) Af Amer 98, Est GFR (MDRD) Non-Af 81, BUN/Creatinine Ratio 23.4 H, Glucose 103, Calcium 8.4 L Micro: Microbiology 06/17/21 10:30 Blood Culture (Wb) - Anticubital Right Blood Culture - Preliminary No growth in 48 hours. 06/17/21 10:35 Nasal Secretion SARS-CoV-2 Antigen (Rapid) - Final Physical Exam Const alert, oriented x3 and no apparent distress Constitutional Narrative: On nasal cannula sitting in chair General Appearance: cooperative and well developed HEENT normocephalic, head/scalp atraumatic and moist oral mucous membranes Eyes PERRL and EOMs intact bilaterally Neck full ROM and no lymphadenopathy Chest inspection of chest normal Resp normal respiratory effort and no use of accessory muscles Resp Narrative: Air exchange good Effort and Inspection: able to speak in complete sentences Auscultation: Negative for rales, rhonchi or wheezes Percussion: Negative for dullness Cardio regular rate, regular rhythm, S1 normal heart sound, S2 normal heart sound, no murmurs, no rub and no gallops GI normal to inspection, nondistended, normoactive bowel sounds no CVA tenderness Extremity no clubbing, cyanosis or edema Skin no rashes or lesions noted Neuro oriented x3, CN's II-XII intact bilaterally, moves all extremities and no focal motor deficits Psych cooperative and affect normal Charges/Coding Visit Charges Inpatient E&M: 60699 Subs Hosp L2
--- NOTE | 2021-06-22 11:38 | DCINST_ITS ---
Discharge Instructions Diet Discharge Diet: No restrictions and 2000 mg Sodium Diet Activity Discharge Activity: Return to Normal Activity Weight Bearing Status: Full weight bearing Follow Up Care Test Results: Test results from this visit will be discussed in further detail at your follow-up appointment, if applicable. Discharge Plan Admission Admit Date/Time: 06/17/21 15:16 Primary Reason for Your Visit: Acute hypoxic respiratory failure secondary to PE COVID-19 pneumonia Attending Provider: Abhishek Adorno Primary Care Provider: Abhishek Smart Consulting Providers: Shahram Lowe ; Han Amin ; Loan Viera [employer] ; Tha Carrillo Instructions Additional Instructions / Restrictions: Quarantine for a total of 20 days after you had your first Covid symptom Do not take any ibuprofen, Aleve, or arthritis pills for pain while you are taking Eliquis, take only Tylenol for pain Discharge Orders/Prescriptions Prescriptions: New ipratropium-albuterol 0.5 mg-3 mg(2.5 mg base)/3 mL Solution For Nebulization 3 ml inhalation Q4H.RT PRN (Reason: SOB) Qty: 90 RF: 0 dexamethasone 4 mg Tablet 6 mg PO DAILY Qty: 11 RF: 0 pantoprazole [Protonix] 40 mg tablet,delayed release (DR/EC) 40 mg PO DAILY Qty: 30 RF: 0 Eliquis 5 mg tablet 5 mg PO BID Qty: 74 RF: 0 Mucinex 1,200 mg tablet extended release 12hr 1,200 mg PO BID Qty: 14 RF: 0 Referrals / Follow Up: Shahram Lowe MD [STAFF PHYSICIAN] - Within 2 Weeks (With Jose Antonio Viera in pulmonary clinic) Abhishek Smart MD [Primary Care Provider] - In 1 Week (PE.) Disposition Disposition (needs filled in before D/C Order can be placed): Home, Self Care
--- NOTE | 2021-06-22 11:51 | CASEMGMT ---
Per Cece COVARRUBIAS, pt does not qualify for home oxygen at rest but does qualify for 6L w/ exertion. Referral faxed to [facility] per previous discussion and [facility] update on pt referral/discharge. Pt to be sent home on Eliquis and med previously e-scribed to [facility]. Eliquis 30 day trial card applied. Pt does not have insurance coverage in [place] but states has [employer] services and states no concerns with coverage once she is back in [place]. Pt states is only visiting sons and plans to return home as soon as she can. Pt's med total for scripts at discharge is $72.90 and she states she can cover cost but also states does not need the mucinex and protonix and states she will notify [facility] pharmacy when they call to get payment info from her. Pt aware that [employer] is [employer] and she used to see [facility] in [place] when she lived here and may try to f/u with his office prior to return home. Pt has pulse ox at home and will check sats. Pt voices no further questions/concerns/needs. Belen COVARRUBIAS CM
--- NOTE | 2021-06-22 15:38 | PHA.DC.MR ---
Pharmacy Service has performed discharge medication reconciliation for this patient. The patient's discharge medication list was reviewed for discrepancies and discrepancies were resolved. Attempted to addictions counselor assistant via telephone but patient did not answer. Home Medications apixaban [Eliquis] 5 mg PO BID #74 tab 06/19/21 dexamethasone 6 mg PO DAILY #11 tab 06/19/21 guaifenesin [Mucinex] 1,200 mg PO BID #14 tab 06/19/21 ipratropium-albuterol 3 ml INHALATION Q4H.RT PRN #90 ml 06/19/21 pantoprazole [Protonix] 40 mg PO DAILY #30 tab 06/19/21
--- NOTE | 2021-06-22 20:41 | PCM.DC.SUM ---
Providers Date of Admission: 06/17/21 Date of Discharge: 06/22/21 Primary Care Physician: Dr. Abhishek Smart MD Consultations 06/17/21 15:56 Consult: Infectious Disease Routine Consulting Provider: Tha Carrillo Reason for Consult: Covid-19 Pneumonia With PE,Severe COPD EMERGENT Consult: No Notified: Yes Date Notified: 06/17/21 Time Notified: 08:36 Method of Notification: Text 06/17/21 18:02 Consult: Director Of Rehabilitative Services / Pulmonary Medicine Routine Consulting Provider: Pulmonary Medicine [facility] Reason for Consult: b/l large PE with RV dilatation EMERGENT Consult: No Notified: Yes Date Notified: 06/17/21 Time Notified: 15:16 Method of Notification: Verbal Comments:: Notified by ER physician Dr. Lanier Reason For Visit: BILATERAL PE WITH RV DILATATION Diagnosis Discharge Diagnosis (1) Respiratory failure: Status: Acute Code(s): J96.90 - Respiratory failure, unspecified, unspecified whether with hypoxia or hypercapnia (2) Pulmonary emboli: Status: Acute Code(s): I26.99 - Other pulmonary embolism without acute cor pulmonale Qualifiers: Pulmonary embolism type: multiple subsegmental (without acute cor pulmonale) Qualified Code(s): I26.94 - Multiple subsegmental pulmonary emboli without acute cor pulmonale (3) Hypoxemia: Status: Acute Code(s): R09.02 - Hypoxemia Plan: 1. COVID-19 pneumonia #2 acute hypoxic respiratory failure secondary to COVID-19 pneumonia and bilateral PEs #3 bilateral PE secondary to COVID-19 pneumonia #4 chronic obstructive pulmonary disease Medications at Discharge Home Medications apixaban [Eliquis] 5 mg PO BID #74 tab 06/19/21 dexamethasone 6 mg PO DAILY #11 tab 06/19/21 guaifenesin [Mucinex] 1,200 mg PO BID #14 tab 06/19/21 ipratropium-albuterol 3 ml INHALATION Q4H.RT PRN #90 ml 06/19/21 pantoprazole [Protonix] 40 mg PO DAILY #30 tab 06/19/21 Hospital Course Operations None Procedures 2-D Echocardiogram Summary of Care Provided Minutes Spent on Discharge: 32 Hospital Course: This 60-year-old white female was seen in the emergency room at [facility] with a chief complaint of shortness of breath which began week before, work-up in the emergency room included a CT showed evidence of pulmonary emboli there was also evidence of right heart strain and acute bilateral pneumonia as well as emphysema on the chest x-ray. Patient's rapid Covid test was negative, PCR however was positive for COVID-19. Patient was admitted to [facility], she was seen in consultation by pulmonary medicine and placed on full anticoagulation, she also received remdesivir and dexamethasone, echocardiogram was obtained which showed a normal EF. Patient's oxygen demand decreased while hospitalized, however, at the time of discharge, patient required 6 L of oxygen while ambulating, she did not require oxygen at rest however. Oxygen was set up for the patient at home, she was expected to use it while ambulating in her home and outside the home. Patient was instructed to quarantine for 20 days after her for symptoms of Covid. On 06/22/2021, patient was seen and examined: On examination she appeared older than her stated age, she does not appear to be in any distress. Vital signs as documented. Skin warm and dry and without overt rashes. Neck without JVD, thyroid appears normal, trachea is midline, neck is supple. Lungs clear, normal air movement was noted. Heart exam notable for regular rhythm, normal sounds and absence of murmurs, rubs or gallops. Abdomen unremarkable and without evidence of organomegaly, masses, or abdominal aortic enlargement, bowel sounds are present in all 4 quadrants, no abdominal tenderness was noted. Extremities nonedematous, no cyanosis was noted, no clubbing was noted. Neuro: Cranial nerves II through XII are grossly intact, no focal motor deficits were noted, sensation to light touch and pinprick is intact, motor exam 5/5 throughout. Psych: Patient is alert and oriented x3, she does not appear anxious or depressed, she does not appear agitated. Patient appears stable for discharge on 06/22/2021. Weight / BMI Weight Weight: 75.3 kg Body Mass Index (BMI) 26.8 ABG / Lab / Microbiology Data Result Diagrams: 06/21/21 05:24 06/22/21 07:30 Laboratory: Laboratory Results - last 24 hr 06/22/21 07:30: Sodium 138, Potassium 3.7, Chloride 103, Carbon Dioxide 27.0, Anion Gap 8, BUN 18, Creatinine 0.77, Estim Creat Clear Calc 70.92, Est GFR (MDRD) Af Amer 98, Est GFR (MDRD) Non-Af 81, BUN/Creatinine Ratio 23.4 H, Glucose 103, Calcium 8.4 L Microbiology: Microbiology 06/17/21 10:30 Blood Culture (Wb) - Anticubital Right Blood Culture - Final No growth in 5 days. 06/17/21 10:35 Nasal Secretion SARS-CoV-2 Antigen (Rapid) - Final D/C Instructions Discharge Diet: No restrictions and 2000 mg Sodium Diet Weight Bearing Status: Full weight bearing Call your doctor if you observe: Fever of 101 or Higher, Coldness, Increased Pain, Numbness or Tingling, Change in Color, Inability to urinate, Inability to have a bowel movement, Using more than 1 pad per hour, Shortness of breath, Dizziness, Fainting spells, Swelling in the ankles, Chest pain, Prolonged hiccupping, Increased palpitations (irregular heartbeat), Calf discomfort and Uncontrolled pain Meaningful Use Info Meaningful Use Diagnoses (Choose all that apply): VTE VTE Anticoag overlap given w/in hospital stay or rx'd at il?: No Pt receive overlap for 5 days?: No Reason overlap not ordered, prescribed, or given for 5 days: Treatment Not Indicated Discharge Plan Admission Admit Date/Time: 06/17/21 15:16 Primary Reason for Your Visit: Acute hypoxic respiratory failure secondary to PE COVID-19 pneumonia Attending Provider: Abhishek Adorno Primary Care Provider: Abhishek Smart Consulting Providers: Shahram Lowe ; Han Amin ; Loan Viera [employer] MANAGER ; Tha Carrillo Instructions Additional Instructions / Restrictions: Patient Problems: Altered Health Status related to Hospitalization Patient Goals: *Optimal Level of Health *Keep Appointments *Medication Compliance *Remain SafeQuarantine for a total of 20 days after you had your first Covid symptom Do not take any ibuprofen, Aleve, or arthritis pills for pain while you are taking Eliquis, take only Tylenol for pain Discharge Orders/Prescriptions Prescriptions: New ipratropium-albuterol 0.5 mg-3 mg(2.5 mg base)/3 mL Solution For Nebulization 3 ml inhalation Q4H.RT PRN (Reason: SOB) Qty: 90 RF: 0 dexamethasone 4 mg Tablet 6 mg PO DAILY Qty: 11 RF: 0 pantoprazole [Protonix] 40 mg tablet,delayed release (DR/EC) 40 mg PO DAILY Qty: 30 RF: 0 Eliquis 5 mg tablet 5 mg PO BID Qty: 74 RF: 0 Mucinex 1,200 mg tablet extended release 12hr 1,200 mg PO BID Qty: 14 RF: 0 Referrals / Follow Up: Shahram Lowe MD [STAFF PHYSICIAN] - Within 2 Weeks (With Jose Antonio Viera in pulmonary clinic) Abhishek Smart MD [Primary Care Provider] - In 1 Week (PE.) Disposition Disposition (needs filled in before D/C Order can be placed): Home, Self Care Charges/Coding Visit Charges Inpatient E&M: [id number] Disch Hosp
--- NOTE | 2021-06-25 17:03 | CASEMGMT ---
MARCI AGUILERA Discharge Follow-up Phone Call: DASHA: Rose Strata:2 Call Date:06/25/21 Discharge Date: 06/22/21 Time of Call: 1650 Admitting Diagnosis: COVID-19 This RN CM contacted pt for discharge follow-up. Pt states she has been doing good since discharge and states she is finding that she is recovering quicker. Pt states she continues to wear her O2 at 6l/min with activity. Pt reports her PO to be 93-94%. Pt states she has a friend that is a nurse and she checks her PO and sends a picture of the reading to her friend. Pt reports her friend to state they are awesome. Pt states she has remained isolated in her son's second story apartment. States her friend checks on her frequently and her son assists her as needed. She states he is only there at night. Pt states she is waiting on [employer] to provide her with mini packs so she can leave the apartment (she is outside of her quarantine period). They are to be delivered this week. Discussed pt returning to [place] and states she has a plan with her sons to assist her in getting back. Pt states she may need to take O2 with her on the trip. Discussed a company who could provide O2 during the trip on upon arrival. Noted [employer] has an office in her home town. Provided pt with phone numbers to both the [place] and [place] offices. Discussed follow-up appointments. Pt states she will contact Dr. Smart's office and will contact Dr. Lowe's office for follow-up prior to returning home. Encouraged pt to ask Dr. Lowe and/or GRICELDA Cates regarding O2 needs for trip and to obtain a new script to be provided to [employer]. Pt expressed understanding. Ambrosio Bailey RN CM
== END 2021-06-22 16:20 | disposition home or self-care (01) | DRG 177 ==
LOC: ED 15:21 → PCU 17:38
PROVIDERS: Internal Medicine Critical Care Medicine; Admitting Provider Internal Medicine; Emergency Provider Emergency Medicine; PCP Family Medicine; Visit Provider Internal Medicine
DX: U07.1 COVID-19 (principal); J12.82 Pneumonia due to coronavirus disease 2019; J96.01 Acute respiratory failure with hypoxia; I26.94 Multiple subsegmental thrombotic pulmonary emboli without acute cor pulmonale; J44.0 Chronic obstructive pulmonary disease with (acute) lower respiratory infection; E87.6 Hypokalemia; Z86.718 Personal history of other venous thrombosis and embolism; Z79.01 Long term (current) use of anticoagulants; F17.210 Nicotine dependence, cigarettes, uncomplicated
CPT/HCPCS: 36415; 71045; 71275; 80048; 80053; 82550; 83605; 83615; 83735; 83880; 84145; 84443; 84484; 85025; 85379; 85384; 85610; 86140; 87040; 87426; 87635; 93005; 93306; 94640; 94667; 94668; 99285; J7030; J7040; J7050; J7120; Q9967; U0005; A4216; J1940; U0003